=== PATIENT | female | born 1965 | race Caucasian/White ===

== ENCOUNTER 2017-07-31 10:45 | Day surgery (SDC) | payer BC ==
[~2017-07-31] VITALS: Ht 167.6 cm; Wt 148.8 kg
[~2017-07-31 10:45] MED LIST: ALBU90OI61 INH; AMLO10 PO; ASPI81CH PO; Clonazepam0.25 MG PO; LEVSOD50 PO; LOSARTAN-HCTZ1 EAC2 PO; Prozac20 MG PO; QNASL CHILDREN4.9 GM INH
== END 2017-07-31 12:43 | disposition home or self-care (01) ==
LOC: ORSCMMR 10:45
PROVIDERS: Internal Medicine Gastroenterology
PROC: 0DBK8ZX Excision of Ascending Colon, Via Natural or Artificial Opening Endoscopic, Diagnostic (ICD-10-PCS; principal; 2017-07-31 13:00)
PROC: 0DBH8ZX Excision of Cecum, Via Natural or Artificial Opening Endoscopic, Diagnostic (ICD-10-PCS; principal; 2017-07-31 13:00)
PROC: 0DBL8ZX Excision of Transverse Colon, Via Natural or Artificial Opening Endoscopic, Diagnostic (ICD-10-PCS; principal; 2017-07-31 13:00)
PROC: 0DBN8ZX Excision of Sigmoid Colon, Via Natural or Artificial Opening Endoscopic, Diagnostic (ICD-10-PCS; 2017-07-31 13:00)
PROC: 0DBM8ZX Excision of Descending Colon, Via Natural or Artificial Opening Endoscopic, Diagnostic (ICD-10-PCS; 2017-07-31 13:00)
DX: R19.7 Diarrhea, unspecified (principal); D12.0 Benign neoplasm of cecum; D12.2 Benign neoplasm of ascending colon; D12.4 Benign neoplasm of descending colon; D12.3 Benign neoplasm of transverse colon; K64.8 Other hemorrhoids; K57.30 Diverticulosis of large intestine without perforation or abscess without bleeding; Z83.71 Family history of colonic polyps; I10 Essential (primary) hypertension; J45.909 Unspecified asthma, uncomplicated; E03.9 Hypothyroidism, unspecified; E66.9 Obesity, unspecified; Z68.43 Body mass index [BMI] 50.0-59.9, adult; Z79.82 Long term (current) use of aspirin; Z79.899 Other long term (current) drug therapy
CPT/HCPCS: 88305; J2250; J7120

== ENCOUNTER → 2019-02-26 | Outpatient (CLI) | payer BC ==
[2019-02-26 13:26] LABS: Creatinine, Urine Random 9.03 mg/dL (27.00-270.00); Protein, Urine Random <5.0 mg/dL (0.0-11.9)
== END | disposition home or self-care (01) ==
LOC: LAB SHORT 12:16 → LAB 12:16
PROVIDERS: Internal Medicine
DX: E87.6 Hypokalemia (principal)
CPT/HCPCS: 82570; 84156

== ENCOUNTER → 2021-05-18 | Outpatient (CLI) | payer BC | END | disposition home or self-care (01) | LOC: LAB SHORT 17:30 | DX: N39.0 Urinary tract infection, site not specified (principal) | CPT/HCPCS: 87077; 87086; 87186 ==

== ENCOUNTER → 2021-06-13 | Outpatient (CLI) | payer BC | END | disposition home or self-care (01) | LOC: LAB SHORT 15:30 | DX: N39.0 Urinary tract infection, site not specified (principal) | CPT/HCPCS: 87077; 87086; 87186 ==

== ENCOUNTER → 2021-06-22 | Outpatient (CLI) | payer BC | END | disposition home or self-care (01) | LOC: LAB 14:00 → LAB SHORT 14:00 | DX: R39.15 Urgency of urination (principal) | CPT/HCPCS: 87086 ==

== ENCOUNTER → 2021-11-22 | Outpatient (CLI) | payer BC ==
[2021-11-22 11:36] LABS: Adenovirus F 40/41 Not Detected (NOT DETECT); Astrovirus Not Detected (NOT DETECT); Campylobacter Sp Not Detected (NOT DETECT); Cryptosporidium Not Detected (NOT DETECT); Cyclospora Cayetanensis Not Detected (NOT DETECT); E. Coli O157 Not Detected (NOT DETECT); Entamoeba Histolytica Not Detected (NOT DETECT); Enteroaggregative E. coli-EAEC Not Detected (NOT DETECT); Enteropathogenic E. coli-EPEC Not Detected (NOT DETECT); Enterotoxigenic E. coli-ETEC Not Detected (NOT DETECT); Giardia Lamblia Not Detected (NOT DETECT); Norovirus GI/GII Not Detected (NOT DETECT); Plesiomonas Shigelloides Not Detected (NOT DETECT); Rotavirus A Not Detected (NOT DETECT); Salmonella Sp Not Detected (NOT DETECT); Sapovirus Not Detected (NOT DETECT); Shiga Toxin-prod E. coli-STEC Not Detected (NOT DETECT); Shigella/Enteroin E. coli-EIEC Not Detected (NOT DETECT); Vibrio Cholerae Not Detected (NOT DETECT); Vibrio Sp Not Detected (NOT DETECT); Yersinia Enterocolitica Not Detected (NOT DETECT)
== END | disposition home or self-care (01) ==
LOC: LAB SHORT 07:00 → LAB 07:00
PROVIDERS: Nurse Practitioner Family
DX: R19.7 Diarrhea, unspecified (principal); R74.01 Elevation of levels of liver transaminase levels; R73.01 Impaired fasting glucose
CPT/HCPCS: 87507

== ENCOUNTER 2022-10-04 08:47 | Day surgery (SDC) | payer BC ==
[~2022-10-04] VITALS: Ht 170.2 cm; Wt 149.1 kg
[2022-10-04] MEDS ORDERED: GABA100 (09:20)
[2022-10-04] MEDS ORDERED: Aldactone50 MG (09:20)
[2022-10-04] MEDS ORDERED: Prozac40 MG (09:21)
[2022-10-04] MEDS ORDERED: TRAZ100 (09:21)
[2022-10-04] MEDS ORDERED: TRAM50 (09:21)
== END 2022-10-04 11:26 | disposition home or self-care (01) ==
LOC: ORSCSDS 08:47
PROVIDERS: Internal Medicine Gastroenterology
PROC: 0DBH8ZX Excision of Cecum, Via Natural or Artificial Opening Endoscopic, Diagnostic (ICD-10-PCS; principal; 2022-10-04 10:00)
PROC: 0DBL8ZX Excision of Transverse Colon, Via Natural or Artificial Opening Endoscopic, Diagnostic (ICD-10-PCS; principal; 2022-10-04 10:00)
PROC: 0DBE8ZX Excision of Large Intestine, Via Natural or Artificial Opening Endoscopic, Diagnostic (ICD-10-PCS; principal; 2022-10-04 10:00)
DX: R19.7 Diarrhea, unspecified (principal); Z86.010 Personal history of colon polyps; K64.4 Residual hemorrhoidal skin tags; I10 Essential (primary) hypertension; E03.9 Hypothyroidism, unspecified; Z87.891 Personal history of nicotine dependence; Z79.899 Other long term (current) drug therapy; E66.01 Morbid (severe) obesity due to excess calories; Z68.43 Body mass index [BMI] 50.0-59.9, adult
CPT/HCPCS: 88305; J2250; J2704; J7120

== ENCOUNTER → 2024-03-02 | Outpatient (CLI) | payer BC ==
[~2024-03-02] MED LIST changes: +Aldactone50 MG; +GABA100; +Prozac40 MG; +TRAM50; +TRAZ100
== END | disposition home or self-care (01) ==
LOC: LAB 11:58 → LAB SHORT 11:58
DX: L08.9 Local infection of the skin and subcutaneous tissue, unspecified (principal)
CPT/HCPCS: 87070; 87077; 87147; 87186; 87205

== ENCOUNTER 2024-09-19 08:01 | Emergency (ER) | payer BC ==
[~2024-09-19] VITALS: Ht 170.2 cm; Wt 145.2 kg
[2024-09-19] MEDS ORDERED: Ketorolac Tromethamine 15mg Vial IV ONE (10:00)
[2024-09-19 10:29] LABS: BASOPHILS ABSOLUTE AUTO 0.05 K/mm3 (0.00-0.23); BASOPHILS PERCENT AUTO 1 % (0-2); EOSINOPHILS ABSOLUTE AUTO 0.07 K/mm3 (0.00-0.68); EOSINOPHILS PERCENT AUTO 1 % (0-6); Hemoglobin 12.2 g/dL (11.5-16.0); IMMATURE GRAN ABSOLUTE AUTO 0.03 K/mm3 (0.00-0.10); IMMATURE GRAN PERCENT AUTO 0 % (0-1); LYMPHOCYTES ABSOLUTE AUTO 1.69 K/mm3 (0.84-5.20); LYMPHOCYTES PERCENT AUTO 17 % (21-46); MONOCYTES ABSOLUTE AUTO 0.62 K/mm3 (0.16-1.47); MONOCYTES PERCENT AUTO 6 % (4-13); Mean Corpuscular HGB 28.5 pg (26.0-34.0); Mean Corpuscular HGB Conc 32.1 g/dL (31.5-36.5); Mean Corpuscular Volume 89 fL (80-100); Mean Platelet Volume 9.4 fL (9.1-12.4); NEUTROPHILS PERCENT AUTO 76 % (41-73); Platelet Count 277 K/mm3 (150-400); RDW Coefficient Variation 15.1 % (11.7-14.2); RDW Standard Deviation 49.1 fL (35.1-46.3); Red Blood Cell Count 4.28 M/mm3 (3.80-5.20); White Blood Cell Count 10.06 K/mm3 (4.00-11.30)
[2024-09-19 11:04] LABS: Albumin/Globulin Ratio 0.7 (0.8-1.8); Bilirubin, Total 0.8 mg/dL (0.1-1.0); Bun/Creatinine Ratio 32.6 (12.0-20.0); Calcium, Blood 9.3 mg/dL (8.5-10.1); Creatinine, Blood 0.64 mg/dL (0.40-1.00); Globulin, Blood 4.3 g/dL (2.2-4.0); Potassium, Blood 3.6 mmol/L (3.5-5.5); Total Protein, Blood 7.3 g/dL (6.4-8.2)
[2024-09-19] MEDS ORDERED: Lidocaine 4% 1 Patch TOP ONE (12:40)
[2024-09-19] MEDS ORDERED: Methocarbamol 500 MG Tab PO ONE (12:40)
[2024-09-19 14:02] LABS: Source, Urine Fem Cath
[2024-09-19 14:04] LABS: Appearance, Urine Hazy (Clear); Bilirubin, Urine Neg (Neg); Blood, Urine Neg (Neg); Color, Urine Yellow (P-Yellow); Glucose Qualitative, Urine Neg (Neg); Ketones, Urine Neg (Neg); Leukocyte Esterase, Urine Neg (Neg); Nitrite, Urine Neg (Neg); Protein, Urine 1+ (Neg); Specific Gravity, Urine 1.015 (1.003-1.022); Urobilinogen, Urine 1+ (Normal)
[2024-09-19 14:13] LABS: Bacteria Mod /hpf; Red Blood Cells, Urine 0-2 /hpf (0-2); Squamous Epithelial Cells Rare /hpf (Few); White Blood Cells, Urine 0-2 /hpf (0-5)
[2024-09-19] MEDS ORDERED: ClonazePAM 1 MG Tab PO ONE (14:45)
[2024-09-19 21:30] VITALS: BP 130/66
[2024-09-19] MEDS ORDERED: Ketorolac Tromethamine 30mg Vial IV ONE (22:35)
== END 2024-09-19 23:05 | disposition home or self-care (01) ==
LOC: ER 08:01
PROVIDERS: Student in an Organized Health Care Education/Training Program
DX: M62.81 Muscle weakness (generalized) (principal); R33.9 Retention of urine, unspecified; D25.9 Leiomyoma of uterus, unspecified; G62.9 Polyneuropathy, unspecified; Z87.891 Personal history of nicotine dependence; Z79.899 Other long term (current) drug therapy
CPT/HCPCS: 51702; 51798; 72141; 72146; 72148; 74177; 80053; 81001; 85025; 87086; 93971; 96374-59; 96376-59; 99285-25; A9270; J1885; Q9967

== ENCOUNTER 2024-09-20 09:36 | Emergency (ER) | payer BC ==
[~2024-09-20] VITALS: Ht 170.2 cm; Wt 145.2 kg
[2024-09-20 10:13] VITALS: BP 117/74
== END 2024-09-20 10:19 | disposition home or self-care (01) ==
LOC: ER 09:36
DX: Z48.03 Encounter for change or removal of drains (principal); Z87.891 Personal history of nicotine dependence
CPT/HCPCS: 99283

== ENCOUNTER 2024-09-29 17:44 | Emergency (ER) | payer BC ==
[~2024-09-29] VITALS: Ht 170.2 cm; Wt 139.2 kg
[~2024-09-29 17:44] MED LIST changes: -Aldactone50 MG; +Aldactone50 MG PO; -TRAM50; +TRAM50 PO
[2024-09-29 18:43] LABS: BASOPHILS ABSOLUTE AUTO 0.04 K/mm3 (0.00-0.23); BASOPHILS PERCENT AUTO 0 % (0-2); EOSINOPHILS ABSOLUTE AUTO 0.14 K/mm3 (0.00-0.68); EOSINOPHILS PERCENT AUTO 1 % (0-6); Hematocrit 34.9 % (33.0-51.0); Hemoglobin 11.2 g/dL (11.5-16.0); IMMATURE GRAN ABSOLUTE AUTO 0.09 K/mm3 (0.00-0.10); IMMATURE GRAN PERCENT AUTO 1 % (0-1); LYMPHOCYTES ABSOLUTE AUTO 2.45 K/mm3 (0.84-5.20); LYMPHOCYTES PERCENT AUTO 23 % (21-46); MONOCYTES ABSOLUTE AUTO 0.52 K/mm3 (0.16-1.47); MONOCYTES PERCENT AUTO 5 % (4-13); Mean Corpuscular HGB 28.2 pg (26.0-34.0); Mean Corpuscular HGB Conc 32.1 g/dL (31.5-36.5); Mean Corpuscular Volume 88 fL (80-100); Mean Platelet Volume 9.3 fL (9.1-12.4); NEUTROPHILS ABSOLUTE AUTO 7.41 K/mm3 (1.96-9.15); NEUTROPHILS PERCENT AUTO 70 % (41-73); Platelet Count 254 K/mm3 (150-400); RDW Coefficient Variation 14.8 % (11.7-14.2); RDW Standard Deviation 48.5 fL (35.1-46.3); Red Blood Cell Count 3.97 M/mm3 (3.80-5.20); White Blood Cell Count 10.65 K/mm3 (4.00-11.30)
[2024-09-29 19:14] LABS: Albumin, Blood 2.7 g/dL (3.4-5.0); Albumin/Globulin Ratio 0.7 (0.8-1.8); Bilirubin, Total 0.6 mg/dL (0.1-1.0); Bun/Creatinine Ratio 16.2 (12.0-20.0); Calcium, Blood 9.4 mg/dL (8.5-10.1); Creatinine, Blood 0.55 mg/dL (0.40-1.00); Globulin, Blood 4.1 g/dL (2.2-4.0); Potassium, Blood 3.3 mmol/L (3.5-5.5); Total Protein, Blood 6.8 g/dL (6.4-8.2)
[2024-09-29] MEDS ORDERED: TAMS.4ER PO (19:15)
[2024-09-29] MEDS ORDERED: PREG25 PO (19:15)
[2024-09-29] MEDS ORDERED: FURO20 (19:15)
[2024-09-29 19:16] LABS: Source, Urine Clean Catch
[2024-09-29] MEDS ORDERED: HYDCHL25 (19:16)
[2024-09-29] MEDS ORDERED: LOSA50 PO (19:16)
[2024-09-29] MEDS ORDERED: POTCHL20ER PO (19:16)
[2024-09-29] MEDS ORDERED: VITAMIN B121000 MCG PO (19:17)
[2024-09-29] MEDS ORDERED: FOLI1 PO (19:17)
[2024-09-29] MEDS ORDERED: FLUT1DIS5 INH (19:17)
[2024-09-29] MEDS ORDERED: Nortriptyline H50 MG PO (19:17)
[2024-09-29] MEDS ORDERED: VITAMIN D350 MC3 PO (19:17)
[2024-09-29 19:21] LABS: Appearance, Urine Hazy (Clear); Blood, Urine 3+ (Neg); Color, Urine Amber (P-Yellow); Glucose Qualitative, Urine Neg (Neg); Ketones, Urine 2+ (Neg); Leukocyte Esterase, Urine 3+ (Neg); Nitrite, Urine Pos (Neg); Protein, Urine 3+ (Neg); Specific Gravity, Urine 1.015 (1.003-1.022); Urobilinogen, Urine 3+ (Normal)
[2024-09-29 19:47] LABS: Bilirubin, Urine 2+ (Neg)
[2024-09-29 19:49] LABS: Mucus Light (0-Heavy)
[2024-09-29 19:50] LABS: Bacteria Many /hpf; Squamous Epithelial Cells Many /hpf (Few); Transitional Epithelial Cells Few /hpf (0-Rare)
[2024-09-29] MEDS ORDERED: Magnesium Citrate 300 ML BTL PO ONE ×2 (20:30→23:00)
[2024-09-29] MEDS ORDERED: Water 500ML With 1 PKT Castile Soap Enema PR ONE (20:30)
[2024-09-29] MEDS ORDERED: CefTRIAXone Sodium 1,000 MG in NS 100 ML IV ONE (21:30)
[2024-09-29 23:00] VITALS: BP 111/58
[2024-09-29] MEDS ORDERED: Diflucan100 MG PO (23:03)
[2024-09-29] MEDS ORDERED: CEFD300 PO (23:03)
== END 2024-09-29 23:10 | disposition home or self-care (01) ==
LOC: ER 17:44
PROVIDERS: Student in an Organized Health Care Education/Training Program
DX: K59.00 Constipation, unspecified (principal); N39.0 Urinary tract infection, site not specified; Z79.82 Long term (current) use of aspirin; Z79.890 Hormone replacement therapy; Z79.899 Other long term (current) drug therapy; Z87.891 Personal history of nicotine dependence
CPT/HCPCS: 71046; 74177; 80053; 81001; 83690; 84484; 85025; 87077; 87086; 87186; 93005; 93010; 96374-59; 99284-25; A9270; J0696; Q9967

== ENCOUNTER 2024-10-03 13:15 | Emergency (ER) | payer BC ==
[~2024-10-03] VITALS: Ht 170.2 cm; Wt 139.2 kg
[~2024-10-03 13:15] MED LIST changes: +CEFD300 PO; +Diflucan100 MG PO; +FLUT1DIS5 INH; +FOLI1 PO; +FURO20; +HYDCHL25; +LOSA50 PO; +Nortriptyline H50 MG PO; +POTCHL20ER PO; +PREG25 PO; +TAMS.4ER PO; +VITAMIN B121000 MCG PO; +VITAMIN D350 MC3 PO
[2024-10-03 15:04] LABS: Source, Urine Clean Catch
[2024-10-03 15:14] LABS: Appearance, Urine Clear (Clear); Bilirubin, Urine Neg (Neg); Blood, Urine Neg (Neg); Color, Urine Yellow (P-Yellow); Glucose Qualitative, Urine Neg (Neg); Ketones, Urine Neg (Neg); Leukocyte Esterase, Urine 1+ (Neg); Nitrite, Urine Neg (Neg); Protein, Urine 1+ (Neg); Urobilinogen, Urine 1+ (Normal); pH, Urine 6.5 (5.0-8.0)
[2024-10-03 15:23] LABS: Amorphous Light (0-Heavy); Bacteria Few /hpf; Mucus Light (0-Heavy); Red Blood Cells, Urine Not Seen /hpf (0-2); Squamous Epithelial Cells Few /hpf (Few); White Blood Cells, Urine 0-2 /hpf (0-5)
[2024-10-03 15:45] VITALS: BP 114/61
== END 2024-10-03 16:04 | disposition home or self-care (01) ==
LOC: ER 13:15
PROVIDERS: Student in an Organized Health Care Education/Training Program
DX: R33.9 Retention of urine, unspecified (principal); Z87.891 Personal history of nicotine dependence; Z79.51 Long term (current) use of inhaled steroids; Z79.899 Other long term (current) drug therapy
CPT/HCPCS: 51702; 51798; 81001; 87086; 99283-25

== ENCOUNTER 2024-10-06 11:20 | Emergency (ER) | payer BC ==
[~2024-10-06] VITALS: Ht 170.2 cm; Wt 139.2 kg
[2024-10-06 11:49] LABS: BASOPHILS ABSOLUTE AUTO 0.04 K/mm3 (0.00-0.23); BASOPHILS PERCENT AUTO 0 % (0-2); EOSINOPHILS ABSOLUTE AUTO 0.11 K/mm3 (0.00-0.68); EOSINOPHILS PERCENT AUTO 1 % (0-6); Hematocrit 30.5 % (33.0-51.0); Hemoglobin 9.9 g/dL (11.5-16.0); IMMATURE GRAN ABSOLUTE AUTO 0.14 K/mm3 (0.00-0.10); IMMATURE GRAN PERCENT AUTO 1 % (0-1); LYMPHOCYTES ABSOLUTE AUTO 2.31 K/mm3 (0.84-5.20); LYMPHOCYTES PERCENT AUTO 22 % (21-46); MONOCYTES ABSOLUTE AUTO 0.56 K/mm3 (0.16-1.47); MONOCYTES PERCENT AUTO 5 % (4-13); Mean Corpuscular HGB 28.5 pg (26.0-34.0); Mean Corpuscular HGB Conc 32.5 g/dL (31.5-36.5); Mean Corpuscular Volume 88 fL (80-100); Mean Platelet Volume 9.4 fL (9.1-12.4); NEUTROPHILS ABSOLUTE AUTO 7.13 K/mm3 (1.96-9.15); NEUTROPHILS PERCENT AUTO 69 % (41-73); Platelet Count 284 K/mm3 (150-400); RDW Coefficient Variation 15.2 % (11.7-14.2); RDW Standard Deviation 48.9 fL (35.1-46.3); Red Blood Cell Count 3.47 M/mm3 (3.80-5.20); White Blood Cell Count 10.29 K/mm3 (4.00-11.30)
[2024-10-06 12:08] LABS: Albumin, Blood 2.5 g/dL (3.4-5.0); Albumin/Globulin Ratio 0.7 (0.8-1.8); Bilirubin, Total 0.3 mg/dL (0.1-1.0); Bun/Creatinine Ratio 18.3 (12.0-20.0); Calcium, Blood 9.3 mg/dL (8.5-10.1); Creatinine, Blood 1.04 mg/dL (0.40-1.00); Globulin, Blood 3.6 g/dL (2.2-4.0); Total Protein, Blood 6.1 g/dL (6.4-8.2)
[2024-10-06] MEDS ORDERED: Lactated Ringer's 1,000 ML IV SCH (12:30)
[2024-10-06 13:44] LABS: IMMATURE RETIC FRACTION 27.1 % (2.3-16.0); RETIC HGB EQUIVALENT 27.3 pg (28.20-36.60); RETICULOCYTE ABSOLUTE 0.0422 M/mm3 (0.0200-0.1100); RETICULOCYTE COUNT PERCENT 1.17 % (0.50-2.50)
[2024-10-06 15:51] LABS: Percent Saturation 47.6 % (15.0-50.0)
[2024-10-06 17:00] VITALS: BP 140/62
== END 2024-10-06 18:04 | disposition home or self-care (01) ==
LOC: ER 11:20
PROVIDERS: Emergency Medicine; Student in an Organized Health Care Education/Training Program
DX: R55 Syncope and collapse (principal); D53.9 Nutritional anemia, unspecified; R06.00 Dyspnea, unspecified; F17.210 Nicotine dependence, cigarettes, uncomplicated; I10 Essential (primary) hypertension; E03.9 Hypothyroidism, unspecified; Z79.890 Hormone replacement therapy; Z79.899 Other long term (current) drug therapy
CPT/HCPCS: 71045; 71260; 80053; 82728; 83540; 83550; 83880; 84484; 85025; 85045; 85379; 93005; 93010; 99285-25; J7120; Q9967

== ENCOUNTER 2024-10-22 15:17 | Emergency (ER) | payer BC ==
[~2024-10-22] VITALS: Ht 170.2 cm; Wt 139.2 kg
[~2024-10-22 15:17] MED LIST changes: +ALBU90OI INH; -ALBU90OI61 INH; -HYDCHL25; +HYDCHL25 PO; -Prozac40 MG
[2024-10-22 16:17] LABS: BASOPHILS ABSOLUTE AUTO 0.05 K/mm3 (0.00-0.23); BASOPHILS PERCENT AUTO 1 % (0-2); EOSINOPHILS ABSOLUTE AUTO 0.42 K/mm3 (0.00-0.68); EOSINOPHILS PERCENT AUTO 4 % (0-6); Hemoglobin 10.6 g/dL (11.5-16.0); IMMATURE GRAN ABSOLUTE AUTO 0.12 K/mm3 (0.00-0.10); IMMATURE GRAN PERCENT AUTO 1 % (0-1); LYMPHOCYTES ABSOLUTE AUTO 1.47 K/mm3 (0.84-5.20); LYMPHOCYTES PERCENT AUTO 14 % (21-46); MONOCYTES ABSOLUTE AUTO 0.77 K/mm3 (0.16-1.47); MONOCYTES PERCENT AUTO 7 % (4-13); Mean Corpuscular HGB 27.9 pg (26.0-34.0); Mean Corpuscular HGB Conc 32.1 g/dL (31.5-36.5); Mean Corpuscular Volume 87 fL (80-100); Mean Platelet Volume 10.3 fL (9.1-12.4); NEUTROPHILS PERCENT AUTO 74 % (41-73); Platelet Count 257 K/mm3 (150-400); RDW Standard Deviation 51.7 fL (35.1-46.3); White Blood Cell Count 10.73 K/mm3 (4.00-11.30)
[2024-10-22 16:25] LABS: Albumin, Blood 2.6 g/dL (3.4-5.0); Albumin/Globulin Ratio 0.6 (0.8-1.8); Bilirubin, Total 0.5 mg/dL (0.1-1.0); Bun/Creatinine Ratio 29.7 (12.0-20.0); Calcium, Blood 10.2 mg/dL (8.5-10.1); Creatinine, Blood 1.28 mg/dL (0.40-1.00); Globulin, Blood 4.5 g/dL (2.2-4.0); Potassium, Blood 4.2 mmol/L (3.5-5.5); Total Protein, Blood 7.1 g/dL (6.4-8.2)
[2024-10-22] MEDS ORDERED: NS 1,000 ML IV SCH (16:30)
[2024-10-22] MEDS ORDERED: Albuterol 2.5 MG/3 ML VIAL INH ONE (16:40)
[2024-10-22 18:22] LABS: Source, Urine Clean Catch
[2024-10-22 18:32] LABS: Appearance, Urine Cloudy (Clear); Bilirubin, Urine Neg (Neg); Blood, Urine 2+ (Neg); Color, Urine Yellow (P-Yellow); Glucose Qualitative, Urine Neg (Neg); Ketones, Urine Neg (Neg); Leukocyte Esterase, Urine 3+ (Neg); Nitrite, Urine Neg (Neg); Protein, Urine 1+ (Neg); Urobilinogen, Urine NORM (Normal)
[2024-10-22 18:39] LABS: Bacteria Mod /hpf; Squamous Epithelial Cells Mod /hpf (Few); White Blood Cells, Urine TNTC /hpf (0-5)
[2024-10-22] MEDS ORDERED: Trimethoprim/Sulfamethoxazole DS Tab PO ONE (19:05)
[2024-10-22] MEDS ORDERED: Fluconazole 100 MG Tab PO ONE (19:05)
[2024-10-22] MEDS ORDERED: Ketorolac Tromethamine 15mg Vial IV ONE (19:05)
[2024-10-22] MEDS ORDERED: Diflucan150 MG PO (19:50)
[2024-10-22] MEDS ORDERED: CEPH500 PO (19:50)
[2024-10-22 20:00] VITALS: BP 116/58
[2024-10-23] MEDS ORDERED: AMLO5 PO (09:23)
[2024-10-23] MEDS ORDERED: Aspir 8181 MG PO (09:23)
[2024-10-23] MEDS ORDERED: BUSP5 PO (09:24)
[2024-10-23] MEDS ORDERED: GABA300 PO (09:26)
[2024-10-23] MEDS ORDERED: HYDHCL25 PO (09:27)
== END 2024-10-22 20:28 | disposition home or self-care (01) ==
LOC: ER 15:17
PROVIDERS: Student in an Organized Health Care Education/Training Program
DX: S82.831A Other fracture of upper and lower end of right fibula, initial encounter for closed fracture (principal); N39.0 Urinary tract infection, site not specified; N17.9 Acute kidney failure, unspecified; B37.31 Acute candidiasis of vulva and vagina; I10 Essential (primary) hypertension; J45.909 Unspecified asthma, uncomplicated; F17.210 Nicotine dependence, cigarettes, uncomplicated; Z79.890 Hormone replacement therapy; Z79.899 Other long term (current) drug therapy; W18.39XA Other fall on same level, initial encounter
CPT/HCPCS: 51702; 51798; 72100; 73562-RT; 73610; 80053; 81001; 85025; 87077; 87086; 87186; 93005; 93010; 94640; 94664; 96361-59; 96374-59; 99284-25; A6590; A9270; J1885; J7030

== ENCOUNTER 2024-10-28 21:20 | Inpatient (IN) | payer BC ==
[~2024-10-28] VITALS: Ht 167.6 cm; Wt 131.0 kg
[~2024-10-28 21:20] MED LIST changes: +AMLO5 PO; +Aspir 8181 MG PO; +BUSP5 PO; +CEPH500 PO; +Diflucan150 MG PO; +GABA300 PO; +HYDHCL25 PO
[2024-10-28] MEDS ORDERED: Morphine Sulfate 4 MG/1 ML Injection IV ONE (21:35)
[2024-10-28] MEDS ORDERED: Ondansetron HCl 2 MG / ML 2ML Vial IV ONE (21:40)
[2024-10-28 21:43] LABS: BASOPHILS ABSOLUTE AUTO 0.07 K/mm3 (0.00-0.23); BASOPHILS PERCENT AUTO 1 % (0-2); EOSINOPHILS ABSOLUTE AUTO 0.22 K/mm3 (0.00-0.68); EOSINOPHILS PERCENT AUTO 2 % (0-6); Hematocrit 32.2 % (33.0-51.0); Hemoglobin 9.9 g/dL (11.5-16.0); IMMATURE GRAN ABSOLUTE AUTO 0.18 K/mm3 (0.00-0.10); IMMATURE GRAN PERCENT AUTO 1 % (0-1); LYMPHOCYTES ABSOLUTE AUTO 1.77 K/mm3 (0.84-5.20); LYMPHOCYTES PERCENT AUTO 12 % (21-46); MONOCYTES ABSOLUTE AUTO 0.46 K/mm3 (0.16-1.47); MONOCYTES PERCENT AUTO 3 % (4-13); Mean Corpuscular HGB Conc 30.7 g/dL (31.5-36.5); Mean Corpuscular Volume 88 fL (80-100); Mean Platelet Volume 10.4 fL (9.1-12.4); NEUTROPHILS ABSOLUTE AUTO 11.76 K/mm3 (1.96-9.15); NEUTROPHILS PERCENT AUTO 81 % (41-73); Platelet Count 332 K/mm3 (150-400); RDW Coefficient Variation 15.9 % (11.7-14.2); RDW Standard Deviation 51.6 fL (35.1-46.3); Red Blood Cell Count 3.66 M/mm3 (3.80-5.20); White Blood Cell Count 14.46 K/mm3 (4.00-11.30)
[2024-10-28 21:55] LABS: Albumin, Blood 2.8 g/dL (3.4-5.0); Albumin/Globulin Ratio 0.6 (0.8-1.8); Bilirubin, Total 0.4 mg/dL (0.1-1.0); Bun/Creatinine Ratio 29.7 (12.0-20.0); Calcium, Blood 9.8 mg/dL (8.5-10.1); Creatinine, Blood 0.91 mg/dL (0.40-1.00); Globulin, Blood 4.4 g/dL (2.2-4.0); Magnesium, Blood 1.7 mg/dL (1.6-2.4); Potassium, Blood 4.4 mmol/L (3.5-5.5); Total Protein, Blood 7.2 g/dL (6.4-8.2)
[2024-10-28 22:04] LABS: Source, Urine Clean Catch
[2024-10-28 22:10] LABS: Bilirubin, Urine Neg (Neg); Blood, Urine 1+ (Neg); Glucose Qualitative, Urine Neg (Neg); Ketones, Urine 1+ (Neg); Leukocyte Esterase, Urine 2+ (Neg); Nitrite, Urine Neg (Neg); Protein, Urine 2+ (Neg); Urobilinogen, Urine NORM (Normal)
[2024-10-28 22:16] LABS: Appearance, Urine Hazy (Clear); Color, Urine Yellow (P-Yellow)
[2024-10-28 22:17] LABS: Bacteria Mod /hpf; Squamous Epithelial Cells Few /hpf (Few); White Blood Cells, Urine 25-50 /hpf (0-5)
[2024-10-28 22:18] LABS: Amorphous Light (0-Heavy); Uric Acid Crystals Few /hpf
[2024-10-28] MEDS ORDERED: Robaxin750 MG PO (22:52)
[2024-10-28] MEDS ORDERED: NS 1,000 ML IV SCH (23:40)
[2024-10-29] MEDS ORDERED: CefTRIAXone Sodium 1,000 MG in NS 100 ML IV ONE (00:50)
[2024-10-29] MEDS ORDERED: Acetaminophen 325 MG TABLET PO PRN (01:25)
[2024-10-29] MEDS ORDERED: Ondansetron HCl 2 MG / ML 2ML Vial IV PRN (01:25)
[2024-10-29 01:50] LABS: Free Thyroxine 1.01 ng/dL (0.70-1.60); Thyroid Stimulating Hormone 48.9 uIU/mL (0.360-4.800)
[2024-10-29] MEDS ORDERED: NS 1,000 ML IV SCH (02:00)
[2024-10-29 02:15] LABS: Influenza A, PCR NEGATIVE (NEGATIVE); Influenza B, PCR NEGATIVE (NEGATIVE); Resp Syncytial Virus, PCR NEGATIVE (NEGATIVE); SARS-Cov-2 (COVID-19) PCR, MMC NEGATIVE (NEGATIVE)
[2024-10-29 03:30] VITALS: BP 127/61
[2024-10-29 04:13] LABS: BASOPHILS ABSOLUTE AUTO 0.07 K/mm3 (0.00-0.23); BASOPHILS PERCENT AUTO 1 % (0-2); EOSINOPHILS ABSOLUTE AUTO 0.13 K/mm3 (0.00-0.68); EOSINOPHILS PERCENT AUTO 1 % (0-6); Hematocrit 33.2 % (33.0-51.0); IMMATURE GRAN ABSOLUTE AUTO 0.17 K/mm3 (0.00-0.10); IMMATURE GRAN PERCENT AUTO 1 % (0-1); LYMPHOCYTES ABSOLUTE AUTO 1.76 K/mm3 (0.84-5.20); LYMPHOCYTES PERCENT AUTO 11 % (21-46); MONOCYTES ABSOLUTE AUTO 0.58 K/mm3 (0.16-1.47); MONOCYTES PERCENT AUTO 4 % (4-13); Mean Corpuscular HGB Conc 30.1 g/dL (31.5-36.5); Mean Corpuscular Volume 90 fL (80-100); Mean Platelet Volume 10.6 fL (9.1-12.4); NEUTROPHILS ABSOLUTE AUTO 12.78 K/mm3 (1.96-9.15); NEUTROPHILS PERCENT AUTO 83 % (41-73); Platelet Count 309 K/mm3 (150-400); RDW Coefficient Variation 15.9 % (11.7-14.2); RDW Standard Deviation 51.9 fL (35.1-46.3); Red Blood Cell Count 3.71 M/mm3 (3.80-5.20); White Blood Cell Count 15.49 K/mm3 (4.00-11.30)
[2024-10-29 04:44] LABS: Albumin, Blood 2.8 g/dL (3.4-5.0); Albumin/Globulin Ratio 0.7 (0.8-1.8); Bilirubin, Total 0.3 mg/dL (0.1-1.0); Bun/Creatinine Ratio 32.8 (12.0-20.0); Calcium, Blood 9.7 mg/dL (8.5-10.1); Creatinine, Blood 0.82 mg/dL (0.40-1.00); Globulin, Blood 4.3 g/dL (2.2-4.0); Magnesium, Blood 1.8 mg/dL (1.6-2.4); Potassium, Blood 4.5 mmol/L (3.5-5.5); Total Protein, Blood 7.1 g/dL (6.4-8.2)
--- NOTE | 2024-10-29 05:30 | NUR ---
SHIFT SUMMARY PT ARRIVED FROM ER AT 0300. PT GIVEN BED BATH D/T STOOL. NEW ATTENDS AND GOWN PLACED. PICTURES TAKEN OF SKIN WOUNDS. RIGHT LEG FX ELEVATED ON PILLOWS AND PT FLOATED. NS INFUSING AT 125ML/HR. ARIAS REMOVED TO BE REPLACED BUT PLACEMENT WAS UNSUCCESFUL. PT ON WEANED TO 3L OF OXYGEN AND SATING AT 100%. TELE SHOWING SR IN THE 60's. VSS. BED IN LOWEST POSITION AND CALL LIGHT IN REACH.
[2024-10-29] MEDS ORDERED: Levothyroxine Sodium 0.175 MG TAB PO SCH (06:00)
[2024-10-29] MEDS ORDERED: Lidocaine 4% 1 Patch TOP PRN (06:10)
[2024-10-29 07:25] VITALS: BP 124/76
[2024-10-29] MEDS ORDERED: Lactobacil 2-S.Thermo-Bifido 1 1 Cap PO SCH (09:00)
[2024-10-29] MEDS ORDERED: Enoxaparin 40 MG/0.4 ML SYR SC SCH (09:00)
[2024-10-29] MEDS ORDERED: ZINC OXIDE/PETROLATUM, YELLOW 1 APPLIC/71 GM PASTE TOP PRN (09:10)
[2024-10-29] MEDS ORDERED: OxyCODONE 5 mg/Acetamin 325 mg TABLET PO PRN (09:15)
[2024-10-29] MEDS ORDERED: Docusate Sodium 100 MG Cap PO SCH (10:00)
[2024-10-29 11:10] VITALS: BP 120/54
[2024-10-29] MEDS ORDERED: Methocarbamol 500 MG Tab PO PRN (11:20)
[2024-10-29] MEDS ORDERED: BusPIRone HCl 5 MG Tab PO PRN (11:20)
[2024-10-29] MEDS ORDERED: Albuterol HFA200 ACT/6.7 GM INH INH PRN (11:35)
[2024-10-29 11:40] VITALS: BP 120/72
[2024-10-29] MEDS ORDERED: FLUoxetine HCL 20 MG CAP PO SCH (12:00)
[2024-10-29] MEDS ORDERED: Polyethylene Glycol 3350 17 gm PO SCH (12:00)
[2024-10-29] MEDS ORDERED: Nicotine 21 MG PATCH TOP SCH (12:00)
--- NOTE | 2024-10-29 13:07 | NUR ---
PT FOUND BLUE/CYANOTIC, STILL BREATING SLOWLY, AROUSABLE, ASKED HOW SHE FEELS, STATES SHE FEELS TIRES AND HAVING TROUBLE BREATHING. OXYGEN HAD BEEN OFF FOR AN HOUR. SATS WERE MAINTAINING 94-96% ROOM AIR. REAPPLIED OXYGEN FULL 15LPM, PT'S SATS RECOVERED WITHIN A MINUTE ALONG WITH CONSECIOUSNESS, VSS. NOTIFIED DR ALBERTO. PT CONTINUES TO PULL HER OXYMITER PROBE OFF STATES IT IS BURNING HER FINGER. INSTRUCTED ON THE PURPOSE AND THE IMPORTANCE OF KEEPING IT ON. WILL JOHN CLOSELY FOR REMAINDER OF THE SHIFT
[2024-10-29 15:30] VITALS: BP 121/64
--- NOTE | 2024-10-29 15:35 | NUR ---
DR JARVIS AT BEDSIDE 1345 FOR CONSULT, DISCUSSED LIGAMENT TEAR DISTAL TIB/FIB AND FX OF PROX FIB, AND THAT THIS IS NOT A FIX HE WILL ATTEMPT BUT WILL DISCUSS CASE WITH PCP TO GAIN CLARITY ON THE FIRST FX DATE AND WHAT ORIGIONAL INJURY WAS. LOOKING INTO SURGICAL OPTIONS.
--- NOTE | 2024-10-29 16:33 | NUR ---
SUMMARY- PT A/O X3-4, USES CALL LIGHT APPROPRIATELY. BEDREST CURRENTLY RELATED TO RLE FX AND LIGAMTENT TEAR. DR JARVIS CONSULTED, EVALUATED PT AND LOOKING INTO OPTIONS. PT IS TO REMAIN NWB RLE. R ANKLE IS SWOLLEN, BRUISING, PPP, ABLE TO WIGGLE TOES, THROUGH FREIGHT ENGINEER <3SEC, HX NERUOPATHY, UNABLE TO FEEL FULL SENSATION BLE. PT HAS DECREASED APPETITE, BITES OF EACH MEAL. NOT MOTIVATED TO TAKE IN FLUIDS EITHER, ENC FLUID INTAKE. COMPLETED 1 LITER OF NS THIS SHIFT. BP HAS REMAINED STABLE SBP 120'S. NO VOID YET THIS SHIFT, BLADDER SCAN AT 1400 = 200ML, WILL JOHN. PT WAS IN SEVERE PAIN IN RLE, ORDER OBTAINED FOR PERCOCET WHICH HAS BEEN EFFECTIVE IN RELEIVING PAIN. PLACED HEEL PROTECTORS BILAT HEELS FOR PRE-EXHISTING BLISTERS. PERFORMED CHADWICK WASH OUT WITH STERILE WATER, IRRIGATED VAGINA THAT WAS FULL OF STOOL. CHADWICK IS EXCORIATED, APPLIED ZINC CREAM. MEPILEX TO R THIGH FOR OPEN BLISTER. BOTTOM ALSO HAS REDDENED LINEAR BREAKDOWN, IF PT WAS SITTING IN ONE POSITION FOR TOO LONG. (PRESENT PRIOR TO ADMISSION/SEE PHOTOS) PT STATES AT HOME SHE SAT ON HER WALKER/CHAIR AND PUSHED HERSELF AROUND THE HOUSE THAT WAY. PT TURNED Q2-4 HOURS, PT DECLINED BEING TURNED A FEW RELATED TO PAIN. WILL REPORT TO QUE FORRESTER
[2024-10-29 20:49] VITALS: BP 113/55
[2024-10-29] MEDS ORDERED: CefTRIAXone Sodium 1,000 MG in NS 100 ML IV SCH (21:00)
[2024-10-29] MEDS ORDERED: Sennosides 8.6 MG Tab PO SCH ×2 (21:00)
--- NOTE | 2024-10-29 23:43 | NUR ---
2130: PT AOX4 TO ORIENTATION QUESTIONS AND COMMUNICATES APPROPRIATELY FOR NEEDS AND ANSWERING QUESTIONS. PT DOES HAVE ODD COMMENTS THOUGH, EXAMPLE; PT ASKED IF SHE'LL BE SLEEPING HERE TONIGHT (REFERENCING HER ROOM), IT WAS ANSWERED THAT SHE WILL BE STAYING THE NIGHT IN THE HOSPITAL AND IN THAT ROOM. SHE ASKS "WHERE IS THE BED?" INFORMED PT SHE WAS ALREADY LYING IN THE BED AND SHE RESPONDED "WELL, I HAVENT SEEN MY FEET ALL DAY, SO I DIDNT KNOW THIS WAS A BED." PT PREVIOUSLY ALSO REMARKED "OH ITS NIGHT TIME ALREADY?" THE SUN WAS STILL OUT AND DAYLIGHT BRIGHT OUTSIDE.
[2024-10-30 04:21] VITALS: BP 123/57
[2024-10-30 05:00] LABS: BASOPHILS ABSOLUTE AUTO 0.09 K/mm3 (0.00-0.23); BASOPHILS PERCENT AUTO 1 % (0-2); EOSINOPHILS ABSOLUTE AUTO 0.33 K/mm3 (0.00-0.68); EOSINOPHILS PERCENT AUTO 3 % (0-6); Hematocrit 29.9 % (33.0-51.0); Hemoglobin 9.2 g/dL (11.5-16.0); IMMATURE GRAN ABSOLUTE AUTO 0.08 K/mm3 (0.00-0.10); IMMATURE GRAN PERCENT AUTO 1 % (0-1); LYMPHOCYTES PERCENT AUTO 28 % (21-46); MONOCYTES ABSOLUTE AUTO 0.47 K/mm3 (0.16-1.47); MONOCYTES PERCENT AUTO 5 % (4-13); Mean Corpuscular HGB 27.4 pg (26.0-34.0); Mean Corpuscular HGB Conc 30.8 g/dL (31.5-36.5); Mean Corpuscular Volume 89 fL (80-100); Mean Platelet Volume 10.6 fL (9.1-12.4); NEUTROPHILS ABSOLUTE AUTO 6.05 K/mm3 (1.96-9.15); NEUTROPHILS PERCENT AUTO 62 % (41-73); Platelet Count 295 K/mm3 (150-400); RDW Coefficient Variation 16.2 % (11.7-14.2); RDW Standard Deviation 52.8 fL (35.1-46.3); Red Blood Cell Count 3.36 M/mm3 (3.80-5.20); White Blood Cell Count 9.72 K/mm3 (4.00-11.30)
[2024-10-30 05:48] LABS: Bun/Creatinine Ratio 31.2 (12.0-20.0); Calcium, Blood 9.5 mg/dL (8.5-10.1); Creatinine, Blood 0.7 mg/dL (0.40-1.00); Free Thyroxine 0.98 ng/dL (0.70-1.60); Potassium, Blood 4.2 mmol/L (3.5-5.5); Triiodothyronine, Free 1.07 pg/mL (2.18-3.98)
--- NOTE | 2024-10-30 06:51 | NUR ---
PT STABLE THROUGHOUT SHIFT WITH VITAL SIGNS. SLEEP STUDY WAS UNABLE TO BE COMPLETED D/T PT REMOVING FINGER PROBE, OXYGEN THERAPY, AND WAS UNABLE TO MAINTAIN SLEEP. RT RECOMMENDED ATTEMPTING STUDY AGAIN THIS COMING NOC SHIFT OR DURING THE DAY IF PT IS SLEEPING. PT ALSO HAD VISUAL HALLUCINATIONS AND REMOVED OTHER MONITORING EQUIPMENT AND IV LINE DURING SHIFT. PT WAS MEDICATED FOR PAIN X1 WITH GOOD EFFECT. DISTAL CMS REMAINS INTACT TO RT LEG. RT LOWER LEG WAS ELEVATED ON PILLOWS TO HELP WITH SWELLING AND PAIN. PT OTHERWISE WAS CALM AND COOPERATIVE, ALLOWING RESTART OF IV AND REPLACEMENT OF O2 AND MONITOR PATCHES/LEADS. PT IS ABLE TO ANSWER ALL ORIENTATION QUESTIONS APPROPRIATELY AND ABLE TO USE CALL LIGHT AND MAKE NEEDS KNOWN. ARIAS CONTINUES TO DRAIN WELL AND PT HAD GOOD URINARY OUTPUT THIS SHIFT.
[2024-10-30 07:34] VITALS: BP 126/62
--- NOTE | 2024-10-30 07:49 | NUR ---
AM NOTE PT ALERT, ORIENTED X4; COOPERATIVE WITH CARE. PT REPORTING PAIN TO RIGHT ANKLE, MEDICATED PER EMAR. PT DENIES CHEST PAIN/PRESSURE, SOB, NAUSEA, AND DIZZINESS. TELE SINUS, BP STABLE. EDEMA NOTED TO BLE, RLE>LLE; BRUISING NOTED TO RLE. SPO2 >90% ON 1L O2 VIA NC, LS CLEAR, DIM BASES. ABD SOFT, NONTENDER, +BT T/O. R ANKLE ELEVATED ON PILLOW, WARM WITH CAP REFILE WNL. OTHER VSS. CALL LIGHT WITHIN REACH
[2024-10-30] MEDS ORDERED: Aspirin 81 MG TabEC PO SCH (09:00)
[2024-10-30 12:16] VITALS: BP 118/66
[2024-10-30 15:25] VITALS: BP 128/69
--- NOTE | 2024-10-30 17:42 | NUR ---
Shift Summary Pt forgetful at times and having intermittent confusion. Pt reports seeing a chicken and cat on her foot, MD notified, plans to cut back on narcotics. Pt reporting pain to rle, edema, bruising noted, cap refill wnl, patient non weight bearing per orders. Pt states she has a new prescription for CPAP at home, spouse denies and office denies as well, made aware. Dr Gao notified of consult this am, new orders for pelvic US completed, pt unable to tolerate the pain from US, Dr Gao notified, new orders for CT. Other vss. Call light with in reach.
[2024-10-30 20:32] VITALS: BP 131/62
[2024-10-30] MEDS ORDERED: Liothyronine Sodium 5 MCG Tab PO SCH (21:00)
[2024-10-30 23:17] VITALS: BP 125/66
[2024-10-31 05:41] VITALS: BP 169/65
[2024-10-31] MEDS ORDERED: Levothyroxine Sodium 0.137 MG Tab PO SCH (06:00)
--- NOTE | 2024-10-31 06:02 | NUR ---
SHIFT SUMMARY A&O X4, ABLE TO MAKE NEEDS KNOWN, OBEYS COMMANDS, BED REST AT THIS TIME, PT REFUSING REPOSITIONING, USING CALL LIGHT APPROPRIATELY. SPO2 GREATER 90% ON RA/ PT PLACED ON 2.5 L O2 VIA NC DURING SLEEP STUDY , PT DENIES SOB T/O THIS SHIFT, LUNGS SOUND CLEAR T/O, ATTEMPTED SLEEP STUDY THIS SHIFT BUT PT DID NOT SLEEP TILL APPROX 4AM. CONTINUOUS TELE MONITORING, SINUS RHYTHM 80-90 S, PULSES PRESENT T/O, MAP GREATER THAN 65, PT DENIES CHEST P/P T/O THIS SHIFT. BOWEL TONES PRESENT IN ALL 4Q, PT DENIES FEELINGS OF CONSTIPATION OR NAUSEA/ PT DOES REPORT NOT HAVING A BM IN A COUPLE OF DAYS AND STATES THAT IS SOMENTIMES NORMAL FOR HER AND JUST DEPENDS ON HOW MUCH SHE IS EATING, PT HAD TWO LIQUID BMS THIS SHIFT/PT DID NOT CALL THE FIRST TIME SHE HAD A BM BUT DID MAKE STAFF AWARE THAT SHE WAS ACTIVELY GOING THE SECOND TIME. ARIAS CATH SECURE/PATENT/DRAINING TO GRAVITY, URINE YELLOW IN COLOR . PT HAVING MULTIPLE SCABS SCATTERED T/O ARMS, BOTTOM IS EXORIATED AND PAINFUL, BRUSING SCATTED T/O, LARGE BRUISE OVER RIGHT ANKLE. PT REPORTING PAIN WITH MOVEMENT AND WITH DURING CLEANING AFTER BOWEL MOVEMENTS/ MEDICATED PER EMAR. BED LOWEST POSITION, CALL LIGHT IN REACH, AWAITING TO GIVE REPORT TO ONCOMING RN.
[2024-10-31 06:33] LABS: Calcium, Blood 9.6 mg/dL (8.5-10.1); Creatinine, Blood 0.65 mg/dL (0.40-1.00); Potassium, Blood 3.9 mmol/L (3.5-5.5)
[2024-10-31 08:30] VITALS: BP 133/65
[2024-10-31] MEDS ORDERED: Thiamine HCl 100 MG Tab PO SCH (09:00)
[2024-10-31] MEDS ORDERED: Multivitamins 1 Tab PO SCH (09:00)
--- NOTE | 2024-10-31 09:47 | NUR ---
AM NOTE: PT LYING IN BED, HAVING LOOSE STOOLS OVERNIGHT AND THIS MORNING. CLEANED PT THIS MORNING AND PLACED NEW CASE BENEATH, HOSPICE VOLUNTEER COORDINATOR EMPTIED AND PROVIDED ARIAS CARE. PT GIVEN MEDICATIONS FOR PAIN PER EMAR. PT STATES "I KEEP THINKING I SEE DOGS" AND APPEARING TO HAVE HALLUCINATIONS. PT IS ON ROOM AIR, LUNG SOUNDS CLEAR. RIGHT LOWER LEG IS SWOLLEN, BRUISED, AND THE PATIENT STATES ITS "PAINFUL" DUE TO FX. VSS, PT LYING IN BED WITH CALL LIGHT IN REACH.
[2024-10-31 11:40] VITALS: BP 122/60
[2024-10-31] MEDS ORDERED: FentaNYL Citrate 50 MCG/ML 2 ML Injection IV ONE (14:30)
[2024-10-31 15:57] VITALS: BP 138/81
--- NOTE | 2024-10-31 16:18 | NUR ---
TRANSFER NOTE: DR VIDAL AT BEDSIDE THIS AFTERNOON, REALIGNED PTS FX, AND WRAPPED IT. PT CURRENTLY GETTING A PELVIC CT WITH CONTRAST. NO OTHER ACUTE CHANGES NOTED. REPORT GIVEN TO USAMA ARELLANO ASSUMING CARE OF PT.
--- NOTE | 2024-10-31 17:00 | NUR ---
ASSUMED CARE NOTE RECEIVED REPORT FROM [employer] FI[employer] OPERATION ZOE AND ENGINEERING AND OPERATIONS DIRECTOR ALIZE. ASSUMED CARE OF PT AT 1635. PT A&OX3, TRANSFERRED TO BED W/ SLIDE SHEET, ATTENDS CHANGED, AND DENIED PAIN. PT ORIENTED TO ROOM AND CALL LIGHT. CALL LIGHT PLACED WITHIN REACH. S/O AT BEDSIDE.
--- NOTE | 2024-10-31 17:08 | NUR ---
I have reviewed the nursing students documention and am in agreement.
[2024-10-31 17:49] VITALS: BP 121/73
--- NOTE | 2024-10-31 18:05 | NUR ---
SHIFT SUMMARY PT A&OX3 W/ VISUAL HALLUCINATIONS, VSS, NOT AMBULATORY, IS TOLERATING PO, VOIDING, AND PAIN MANAGED PER EMAR. NO ACUTE CHANGES FROM PREVIOUS NOTE. CALL LIGHT WITHIN REACH AND PT ABLE TO MAKE NEEDS KNOWN.
[2024-10-31 19:14] VITALS: BP 127/79
[2024-10-31] MEDS ORDERED: NS 250 ML IV PRN (20:10)
[2024-11-01 03:22] VITALS: BP 120/70
--- NOTE | 2024-11-01 04:06 | NUR ---
SHIFT SUMMARY INITIALLY HERE FOR RESPIRATORY FAILURE & GLF ON 10/29/24 WITH R FIBULA FRACTURE. TRANSFER FROM PCU TO MED FLOOR, DECREASED FROM 4L NC TO RA. BP 127/69, HR 84. R FIBULA SPLINTED BY DR. VIDAL, ORTHO. ORTHO PLANS TO TAKE TO OR 11/02/24. ON STRICT BEDREST. MEPILEX ON L HEEL BLISTER AND R HIP ABRASION. IV IN RAC. HEART HEALTHY DIET. IV CEFTRIAXONE FOR E. FAECALIS UTI. INCONTINENT OF LIQUID BROWN STOOL. VISUAL HALLUCINATIONS. SLEEP STUDY ENDED EARLY, RT NOTIFIES STUDY SUGGESTIVE OF NEED FOR CPAP. DUE TO PT PULLING AT IV AND SLEEP STUDY EQUIPMENT, PT IS PLACED ON 2L NC INSTEAD. TOLERATING WELL.
[2024-11-01] MEDS ORDERED: Levothyroxine Sodium 0.175 MG TAB PO SCH (06:00)
[2024-11-01 06:13] LABS: BASOPHILS ABSOLUTE AUTO 0.05 K/mm3 (0.00-0.23); BASOPHILS PERCENT AUTO 1 % (0-2); EOSINOPHILS ABSOLUTE AUTO 0.39 K/mm3 (0.00-0.68); EOSINOPHILS PERCENT AUTO 4 % (0-6); Hematocrit 31.2 % (33.0-51.0); Hemoglobin 9.9 g/dL (11.5-16.0); IMMATURE GRAN ABSOLUTE AUTO 0.06 K/mm3 (0.00-0.10); IMMATURE GRAN PERCENT AUTO 1 % (0-1); LYMPHOCYTES ABSOLUTE AUTO 1.49 K/mm3 (0.84-5.20); LYMPHOCYTES PERCENT AUTO 14 % (21-46); MONOCYTES ABSOLUTE AUTO 0.63 K/mm3 (0.16-1.47); MONOCYTES PERCENT AUTO 6 % (4-13); Mean Corpuscular HGB 27.4 pg (26.0-34.0); Mean Corpuscular HGB Conc 31.7 g/dL (31.5-36.5); Mean Corpuscular Volume 86 fL (80-100); Mean Platelet Volume 10.4 fL (9.1-12.4); NEUTROPHILS ABSOLUTE AUTO 8.08 K/mm3 (1.96-9.15); NEUTROPHILS PERCENT AUTO 76 % (41-73); Platelet Count 302 K/mm3 (150-400); RDW Coefficient Variation 16.3 % (11.7-14.2); RDW Standard Deviation 50.2 fL (35.1-46.3); Red Blood Cell Count 3.61 M/mm3 (3.80-5.20)
[2024-11-01 06:43] LABS: Albumin, Blood 2.8 g/dL (3.4-5.0); Albumin/Globulin Ratio 0.7 (0.8-1.8); Bilirubin, Total 0.4 mg/dL (0.1-1.0); Bun/Creatinine Ratio 17.4 (12.0-20.0); Calcium, Blood 9.6 mg/dL (8.5-10.1); Creatinine, Blood 0.69 mg/dL (0.40-1.00); Globulin, Blood 4.1 g/dL (2.2-4.0); Potassium, Blood 3.7 mmol/L (3.5-5.5); Total Protein, Blood 6.9 g/dL (6.4-8.2)
[2024-11-01 07:12] VITALS: BP 142/76
[2024-11-01 15:30] LABS: U Amphetamine Screen Not Detected; U Barbituate Screen Not Detected; U Benzodiazapine Screen DETECTED; U Buprenorphine Screen Not Detected; U Cannabinoids Screen Not Detected; U Cocaine Screen Not Detected; U Methadone Screen Not Detected; U Methamphetamine Screen Not Detected; U Opiates Screen Not Detected; U Oxycodone Screen DETECTED; U Phencyclidine Screen Not Detected
[2024-11-01 15:54] VITALS: BP 148/77
--- NOTE | 2024-11-01 18:38 | NUR ---
SHIFT SUMMARY PT A&OX4 W/ INTERMIT CONFUSION AND HALLUCINATIONS. PT TITRATED DOWN TO 1L O2 NC, ATTEMPT ON RA UNSUCCESSFUL, DESAT TO 86%. PROVIDER ORDERED D DIMER AND PE STUDY. D DIMER ELEVATED AND PE STUDY NEGATIVE. ARIAS CHANGED PER ORDER. PAIN MANAGED PER EMAR. PLAN FOR R FIF SURGERY MON. NO OTHER ACUTE CHANGES. CALL LIGHT WITHIN REACH AND BED ALARM ON FOR SAFETY.
[2024-11-01 19:51] VITALS: BP 120/53
[2024-11-02 03:21] VITALS: BP 137/76
--- NOTE | 2024-11-02 04:19 | NUR ---
SHIFT SUMMARY - NO ACUTE CHANGES THROUGHOUT THE NIGHT. PT REPORTS HISTORY OF N/T TO BLE FROM THIGHS DOWNWARD, AND TO BILATERAL UPPER EXTREMITIES. RESPIRATIONS HAVE BEEN EVEN AND UNLABORED THROUGHOUT THE NIGHT - PT CONTINUES ON 1L O2 VIA NC. PT MEDICATED X1 TONIGHT FOR RLE PAIN. HELD BOWEL CARE - PT REPORTS SHE HAS BEEN HAVING LOOSE STOOLS. R LEG WRAPPED AND ELEVATED ON A PILLOW - PT ABLE TO WIGGLE HER RIGHT TOES. CALL LIGHT WITHIN REACH. BED IN LOW POSITION.
[2024-11-02 05:44] LABS: Hematocrit 33.4 % (33.0-51.0); Hemoglobin 10.7 g/dL (11.5-16.0); Mean Corpuscular Volume 87 fL (80-100); Mean Platelet Volume 10.4 fL (9.1-12.4); Platelet Count 318 K/mm3 (150-400); RDW Coefficient Variation 16.4 % (11.7-14.2); RDW Standard Deviation 50.8 fL (35.1-46.3); Red Blood Cell Count 3.82 M/mm3 (3.80-5.20); White Blood Cell Count 9.98 K/mm3 (4.00-11.30)
[2024-11-02 06:16] LABS: Bun/Creatinine Ratio 18.1 (12.0-20.0); Creatinine, Blood 0.55 mg/dL (0.40-1.00); Potassium, Blood 3.5 mmol/L (3.5-5.5)
[2024-11-02 07:35] VITALS: BP 148/72
[2024-11-02 15:46] VITALS: BP 132/85
--- NOTE | 2024-11-02 18:47 | NUR ---
DAY SHIFT SUMMARY: NO ACUTE CHANGES TO REPORT THIS SHIFT. PT A&O X3; CALM AND COOPERATIVE WITH CARE. MEDICATED FOR R FIB FX PAIN PER EMAR. ARIAS IN PLACE; DRAINING CLEAR YELLOW URINE TO GRAVITY. PHYSICAL THERAPY FOLLOWING. SURGERY PLANNED FOR 11/03; PT TO BE NPO AFTER MIDNIGHT. WCTM.
[2024-11-02 19:21] VITALS: BP 116/65
[2024-11-03] VITALS (11 sets, daily range): BP systolic 113–144; BP diastolic 58–87
[2024-11-03 06:05] LABS: Hematocrit 35.1 % (33.0-51.0)
--- NOTE | 2024-11-03 06:23 | NUR ---
PT A&OX4, ON BEDREST. PT HAS ARIAS INTACT AND DRAINING CHAMP COLORED URINE WITH SEDIMENT NOTED IN THE TUBING. PT WAS NPO AFTER MIDNIGHT. IV PATENT AND INTACT FLUSHED WITHOUT DIFFICULTY. DRESSINGS HAVE REMAINED C/D/I.
[2024-11-03 06:37] LABS: Bun/Creatinine Ratio 23.2 (12.0-20.0); Calcium, Blood 9.3 mg/dL (8.5-10.1); Creatinine, Blood 0.6 mg/dL (0.40-1.00); Magnesium, Blood 1.6 mg/dL (1.6-2.4); Phosphorus, Blood 3.3 mg/dL (2.5-4.9); Potassium, Blood 3.5 mmol/L (3.5-5.5)
[2024-11-03] MEDS ORDERED: Mag Sulfate 1 GM/D5% 100ML 100 ML IV STA (07:43)
[2024-11-03] MEDS ORDERED: Potassium Chloride 20 MEQ TabCR PO ONE (08:00)
[2024-11-03] MEDS ORDERED: propofoL 50 ML IV ONE (10:47)
[2024-11-03] MEDS ORDERED: Ropivacaine 0.5% HCL/PF 5 MG/ML 30ML Vial ONE (10:47)
[2024-11-03] MEDS ORDERED: Acetaminophen 500 MG Tab PO PRN (11:30)
[2024-11-03] MEDS ORDERED: Metoclopramide HCl 5MG / ML 2ML Vial IV PRN (11:30)
[2024-11-03] MEDS ORDERED: Lidocaine HCl 1% 5 ML SYR INJ ONE (11:30)
[2024-11-03] MEDS ORDERED: HYDROmorphone HCl/Pf 1MG SYR IV PRN ×2 (11:30)
[2024-11-03] MEDS ORDERED: Atropine Sulfate 0.1 MG/ML 10ML SYR IV PRN (11:35)
[2024-11-03] MEDS ORDERED: Scopolamine Hydrobromide Patch TOP PRN (11:35)
[2024-11-03] MEDS ORDERED: FentaNYL Citrate 50 MCG/ML 2 ML Injection IV PRN ×2 (11:35)
[2024-11-03] MEDS ORDERED: ePHEDrine Sulfate 50 MG/ML 1ML Injection IV PRN (11:35)
[2024-11-03] MEDS ORDERED: Ondansetron HCl 2 MG / ML 2ML Vial IV PRN (11:35)
[2024-11-03] MEDS ORDERED: CeFAZolin Sodium 3,000 MG in NS 100 ML IV SCH (15:55)
[2024-11-03] MEDS ORDERED: Lactated Ringer's 1,000 ML IV SCH (15:55)
[2024-11-03] MEDS ORDERED: Dexamethasone Sod Phos 10 MG/ML 1ML VIAL ONE (16:01)
[2024-11-03] MEDS ORDERED: EpiNEPhrine 1 MG/1 ML 1ML Vial ONE (16:01)
[2024-11-03] MEDS ORDERED: Dexmedetomidine HCL 200 MCG / 2 ML ONE (16:02)
--- NOTE | 2024-11-03 16:02 | NUR ---
SHIFT SUMMARY PT AOX4, COOPERATIVE, ABLE TO MAKE NEEDS KNOWN. PT HAS BEEN IN BED FOR DURATION OF SHIFT. HAS NOT ASKED TO USE BED PAIN FOR ELIMINATION, ARIAS CATHETER INTACT AND DRAINING TO GRAVITY, LITTLE URINE OUTPUT NOTED. WENT DOWN FOR PROCEDURE 10 MINUTES AGO. DO NOT KNOWN IF PT WILL BE TRANSFERRED TO SURGICAL FLOOR AFTER PROCEDURE OR REMAIN ON MEDICAL FLOOR. LEFT HAND IV WORKING SO FAR, HAD TO REDRESS AFTER SOME LEAKING. BED IN LOWEST POSITION, CALL LIGHT WITHIN REACH.
--- NOTE | 2024-11-03 16:16 | NUR ---
1547: PT BROUGHT FROM MEDICAL FLOOR TO DAY SURGERY FOR PROCEDURE W/DR VIDAL. History, Chart, Medications and Allergies reviewed before start of procedure. Lungs clear T/O to Auscultation. Patient confirms NPO status and agrees with scheduled surgery. Pre-Op teaching done. Pt verbalizes understanding. PT BELONGINGS LEFT IN PERSONAL ROOM ON MEDICAL FLOOR. PT LUCILLEPERRISHAYY LEFT WITH HER MOTHER HELENA FOR SAFEKEEPING.
[2024-11-03] MEDS ORDERED: FentaNYL Citrate 50 MCG/ML 2 ML Injection ONE (16:24)
[2024-11-03] MEDS ORDERED: Midazolam HCl 1MG / ML 2ML Vial ONE (16:24)
--- NOTE | 2024-11-03 16:38 | NUR ---
1625: DR EUGENE WITH ANESTHESIA AT BEDSIDE TO PERFORM POPLITEAL AND SAPHENOUS NERVE BLOCKS IN PREOP. PRE MEDS GIVEN BY ANESTHESIA, SEE ANESTHESIA NOTES. 1639: POPLITEAL BLOCK START TIME. 1645: POPLITEAL BLOCK END TIME. 1648: SAPHENOUS BLOCK START TIME. 1652: SAPHENOUS BLOCK END TIME. FAILED ATTEMPT PER DR EUGENE. PT ON CONTINUOUS HR/PULSE OX MONITORING THROUGHOUT PROCEDURE. VSS THROUGHOUT AND PT TOLERATED PROCEDURE WELL.
[2024-11-03] MEDS ORDERED: Sugammadex Sodium 200 MG/2ML SDV (100 MG/ML) ONE (18:03)
[2024-11-03] MEDS ORDERED: Ondansetron HCl 2 MG / ML 2ML Vial ONE (18:04)
--- NOTE | 2024-11-03 18:36 | NUR ---
RECEIVED REPORT FROM WILLI OF DAY SURG.
[2024-11-04] MEDS ORDERED: CeFAZolin Sodium 2,000 MG in NS 100 ML IV SCH (01:00)
--- NOTE | 2024-11-04 05:10 | NUR ---
PT REFUSED STOOL SOFTNERS. DISCUSSED THE IMPORTANCE OF TAKING STOOL SOFTNERS WHILE TAKING PAIN MEDICATION TO PREVENT CONSTIPATION. PT VERBALIZED UNDERSTADNING AND REFUSED STOOL SOFTNERS. AT THE BEGINING OF THE SHIFT TTEMPTED TO WEAN PT OFF OF O2 AND O2 SATS DECREASED TO 82% SHE IS AT 96% ON 2L VIA NC. CONTINUOUS BIOX MONITOR IN PLACE. AT BEGINING OF SHIFT PT REPORTED PAIN IN RLE POSTERIOR OF 9/10 PAIN MEDICATIONS GIVEN RX AND PT REPORTED PAIN WAS RELIEVED TO 0/10. PT COMPLETED SLEEP STUDY T/O THIS SHIFT.
[2024-11-04 06:09] VITALS: BP 144/84
[2024-11-04 07:06] LABS: BASOPHILS ABSOLUTE AUTO 0.03 K/mm3 (0.00-0.23); BASOPHILS PERCENT AUTO 0 % (0-2); EOSINOPHILS PERCENT AUTO 0 % (0-6); Hematocrit 34.5 % (33.0-51.0); IMMATURE GRAN ABSOLUTE AUTO 0.06 K/mm3 (0.00-0.10); IMMATURE GRAN PERCENT AUTO 1 % (0-1); LYMPHOCYTES ABSOLUTE AUTO 0.68 K/mm3 (0.84-5.20); LYMPHOCYTES PERCENT AUTO 7 % (21-46); MONOCYTES ABSOLUTE AUTO 0.24 K/mm3 (0.16-1.47); MONOCYTES PERCENT AUTO 2 % (4-13); Mean Corpuscular HGB 27.9 pg (26.0-34.0); Mean Corpuscular HGB Conc 31.9 g/dL (31.5-36.5); Mean Corpuscular Volume 88 fL (80-100); Mean Platelet Volume 10.7 fL (9.1-12.4); NEUTROPHILS ABSOLUTE AUTO 9.01 K/mm3 (1.96-9.15); NEUTROPHILS PERCENT AUTO 90 % (41-73); Platelet Count 333 K/mm3 (150-400); RDW Coefficient Variation 16.9 % (11.7-14.2); RDW Standard Deviation 53.1 fL (35.1-46.3); Red Blood Cell Count 3.94 M/mm3 (3.80-5.20); White Blood Cell Count 10.02 K/mm3 (4.00-11.30)
[2024-11-04 07:27] LABS: Albumin, Blood 2.8 g/dL (3.4-5.0); Albumin/Globulin Ratio 0.7 (0.8-1.8); Bilirubin, Total 0.3 mg/dL (0.1-1.0); Bun/Creatinine Ratio 30.6 (12.0-20.0); Calcium, Blood 9.2 mg/dL (8.5-10.1); Creatinine, Blood 0.56 mg/dL (0.40-1.00); Globulin, Blood 4.3 g/dL (2.2-4.0); Magnesium, Blood 1.9 mg/dL (1.6-2.4); Phosphorus, Blood 2.9 mg/dL (2.5-4.9); Potassium, Blood 4.1 mmol/L (3.5-5.5); Total Protein, Blood 7.1 g/dL (6.4-8.2)
[2024-11-04 07:36] VITALS: BP 130/65
[2024-11-04] MEDS ORDERED: Furosemide 10 MG / ML 2ML Vial IV ONE (08:00)
--- NOTE | 2024-11-04 17:46 | NUR ---
SHIFT SUMMARY PT AOX4, COOPERATIVE, ABLE TO MAKE NEEDS KNOWN. PT HAS NOT BEEN OUT OF BED FOR DURATION OF SHIFT. ON ROOM AIR MOST OF TIME, O2 DOES DESAT INTO HIGH 80'S DURING SLEEP. WORKED WITH THERAPY TODAY, TOLERATING PO AND IV MEDICATIONS. BED IN LOWEST POSITION, CALL LIGHT WITHIN REACH.
[2024-11-04 19:15] VITALS: BP 126/69
--- NOTE | 2024-11-05 02:57 | NUR ---
SHIFT SUMMARY NO ACUTE EVENTS DURING THIS SHIFT. MEDICATED PER EMAR FOR 9/10 RIGHT LEF/FOOT PAIN. SLEEP STUDY SET UP PER RT. ARIAS DRAINING FOR GRAVITY, YELLOW COLOR URINE. PT IS A/O X4, ABLE TO MAKE HER NEEDS KNOWN AND COOPERATIVE WITH CARE. BED AT THE LOWEST POSITION, CALL LIGHT W/I REACH.
[2024-11-05 03:38] VITALS: BP 127/64
[2024-11-05 06:08] LABS: Hematocrit 32.7 % (33.0-51.0); Hemoglobin 10.6 g/dL (11.5-16.0); Mean Corpuscular HGB 28.2 pg (26.0-34.0); Mean Corpuscular HGB Conc 32.4 g/dL (31.5-36.5); Mean Corpuscular Volume 87 fL (80-100); Mean Platelet Volume 11.2 fL (9.1-12.4); Platelet Count 335 K/mm3 (150-400); RDW Coefficient Variation 17.5 % (11.7-14.2); RDW Standard Deviation 53.8 fL (35.1-46.3); Red Blood Cell Count 3.76 M/mm3 (3.80-5.20); White Blood Cell Count 9.07 K/mm3 (4.00-11.30)
[2024-11-05 06:28] LABS: Bun/Creatinine Ratio 35.3 (12.0-20.0); Calcium, Blood 9.3 mg/dL (8.5-10.1); Creatinine, Blood 0.57 mg/dL (0.40-1.00); Magnesium, Blood 1.5 mg/dL (1.6-2.4); Potassium, Blood 3.3 mmol/L (3.5-5.5)
[2024-11-05 07:23] VITALS: BP 142/69
[2024-11-05] MEDS ORDERED: Mag Sulfate 1 GM/D5% 100ML 100 ML IV STA (07:54)
[2024-11-05] MEDS ORDERED: Potassium Chloride 20 MEQ TabCR PO ONE (08:00)
[2024-11-05] MEDS ORDERED: Furosemide 10 MG / ML 2ML Vial IV ONE (09:00)
[2024-11-05 17:05] VITALS: BP 136/70
--- NOTE | 2024-11-05 18:11 | NUR ---
SHIFT SUMMARY PATIENT A/OX4, ABLE TO MAKE NEEDS KNOWN. PLEASANT AND COOPERATIVE WITH CARE. WALLYN STATES SHE IS "STRUGGLING WITH THINGS AT HOME" RELATED TO RECENT DECLINE IN HEALTH AND NEEDING TO GO TO SKILLED FACILITY AT DISCHARGE. IV POTASSIUM REPLACED PER SEP THIS SHIFT. PATIENT DENYING PAIN ALL SHIFT, NO PRN PAIN MEDICATION ADMINISTERED. PATIENT HAS BEEN WEANED FROM 4 LPM SUPPLEMENTAL OXYGEN TO 2 LPM, TOLERATING WELL. SPO2 REMAINS ABOVE 90%, CONTINUOUS PULSE OX IN PLACE. NO OTHER CONCERNS AT THIS TIME.
[2024-11-05 20:05] VITALS: BP 131/66
--- NOTE | 2024-11-06 05:37 | NUR ---
SHIFT SUMMARY PT A&Ox4 AND ABLE TO MAKE NEEDS KNOWN. PT DENIED PAIN. PT ON 2L AT START OF SHIFT BUT OXYGEN WAS INCREASED TO 5L DURING THE NIGHT D/T SATS DROPPING INTO THE LOW 80's WHILE SLEEPING. ARIAS IN PLACE AND DRAINING YELLOW URINE. VSS. NO ACUTE CHANGES. BED IN LOWEST POSITIOIN AND CALL LIGHT IN REACH.
[2024-11-06 05:56] VITALS: BP 146/83
[2024-11-06 06:16] LABS: Hematocrit 35.1 % (33.0-51.0); Hemoglobin 11.1 g/dL (11.5-16.0)
[2024-11-06 06:38] LABS: Bun/Creatinine Ratio 31.5 (12.0-20.0); Calcium, Blood 9.8 mg/dL (8.5-10.1); Creatinine, Blood 0.6 mg/dL (0.40-1.00); Magnesium, Blood 1.9 mg/dL (1.6-2.4); Phosphorus, Blood 2.9 mg/dL (2.5-4.9); Potassium, Blood 3.5 mmol/L (3.5-5.5)
[2024-11-06 07:37] VITALS: BP 167/85
[2024-11-06] MEDS ORDERED: ACET325 PO (10:33)
[2024-11-06] MEDS ORDERED: ENOX40I SC (10:33)
[2024-11-06] MEDS ORDERED: LIDO700A20 TOP (10:37)
[2024-11-06] MEDS ORDERED: MULVITA PO (10:38)
[2024-11-06] MEDS ORDERED: MIRALAX17 GM PO (10:39)
[2024-11-06] MEDS ORDERED: NICO21TP TOP (10:39)
[2024-11-06] MEDS ORDERED: Percocet 5-3251 EACH PO (10:39)
[2024-11-06] MEDS ORDERED: B-1100 M1 PO (10:40)
[2024-11-06] MEDS ORDERED: VISBIOME 112.51 EACH PO (10:40)
[2024-11-06] MEDS ORDERED: SENN187 PO (10:40)
[2024-11-06] MEDS ORDERED: REMEDY SPECIAL113 GM TOP (10:41)
--- NOTE | 2024-11-06 11:10 | NUR ---
DISCHARGE NOTE PATIENT A/OX4, ABLE TO MAKE NEEDS KNOWN. COOPERATIVE WITH CARE. IV REMOVED, AND PULSE OX REMOVED PRIOR TO DISCHARGE. PATIENT ASSISTED TO WHEELCHAIR VIA ADELAIDA LIFT. PATIENT SENT TO FACILITY WITH ALL BELONGINGS, REPORT GIVEN TO VIET AT [facility]. NO OTHER CONCERNS AT THIS TIME.
== END 2024-11-06 11:12 | DRG 981 ==
LOC: ER 21:20 → PCU 10-29 01:21 → ERHOLD 10-29 01:21 → MEDS 10-29 01:21 → PCU 10-29 02:59 → MEDS 10-31 16:31
PROVIDERS: Hospitalist; Internal Medicine; Student in an Organized Health Care Education/Training Program; ADMIT Student in an Organized Health Care Education/Training Program
PROC: 0T2BX0Z Change Drainage Device in Bladder, External Approach (ICD-10-PCS; principal; 2024-10-29)
PROC: 3E03329 Introduction of Other Anti-infective into Peripheral Vein, Percutaneous Approach (ICD-10-PCS; 2024-10-29)
PROC: 0SSF04Z Reposition Right Ankle Joint with Internal Fixation Device, Open Approach (ICD-10-PCS; 2024-11-03)
DX: T83.511A Infection and inflammatory reaction due to indwelling urethral catheter, initial encounter (principal); A41.9 Sepsis, unspecified organism; J96.01 Acute respiratory failure with hypoxia; G92.8 Other toxic encephalopathy; Z68.43 Body mass index [BMI] 50.0-59.9, adult; R44.3 Hallucinations, unspecified; S82.831A Other fracture of upper and lower end of right fibula, initial encounter for closed fracture; G89.29 Other chronic pain; I10 Essential (primary) hypertension; E03.9 Hypothyroidism, unspecified; G47.33 Obstructive sleep apnea (adult) (pediatric); R33.8 Other retention of urine; F32.A Depression, unspecified; D64.9 Anemia, unspecified; R29.6 Repeated falls; Z79.899 Other long term (current) drug therapy; Z79.890 Hormone replacement therapy; Z79.51 Long term (current) use of inhaled steroids; Z79.82 Long term (current) use of aspirin; Z90.49 Acquired absence of other specified parts of digestive tract; Z98.1 Arthrodesis status; Z87.891 Personal history of nicotine dependence; Z99.89 Dependence on other enabling machines and devices; W18.11XA Fall from or off toilet without subsequent striking against object, initial encounter; Y92.091 Bathroom in other non-institutional residence as the place of occurrence of the external cause; E66.01 Morbid (severe) obesity due to excess calories; D25.9 Leiomyoma of uterus, unspecified
CPT/HCPCS: 0241U; 36415; 71045; 71260; 72194; 73590; 73610; 80048; 80053; 81001; 83605; 83735; 83880; 84100; 84145; 84439; 84443; 84481; 84484; 85014; 85018; 85025; 85027; 85379; 87077; 87086; 87186; 93005; 93010; 94660; 94760; 94762; 96361; 96374; 96375; 97110; 97161; 97166; 97530; 97535; 99285-25; A9270; C1713; C1776; J0171; J0690; J0696; J1100; J1650; J1940; J2250; J2270; J2405; J2704; J2795; J3010; J3475; J7030; J7050; J7120; Q9967

== ENCOUNTER 2024-11-29 11:42 | Emergency (ER) | payer BC ==
[~2024-11-29] VITALS: Ht 170.2 cm; Wt 131.5 kg
[~2024-11-29 11:42] MED LIST changes: +ACET325 PO; +B-1100 M1 PO; +ENOX40I SC; +LIDO700A20 TOP; +MIRALAX17 GM PO; +MULVITA PO; +NICO21TP TOP; +Percocet 5-3251 EACH PO; +REMEDY SPECIAL113 GM TOP; +Robaxin750 MG PO; +SENN187 PO; +VISBIOME 112.51 EACH PO
[2024-11-29] MEDS ORDERED: Belladonna Alkaloids/Opium 60 MG Sup PR ONE (12:10)
[2024-11-29] MEDS ORDERED: OXYB5 PO (14:02)
[2024-11-29] MEDS ORDERED: OxyCODONE 5 mg/Acetamin 325 mg TABLET PO ONE (14:05)
[2024-11-29] MEDS ORDERED: oxyBUTYnin chloride 5 MG TAB PO ONE (14:05)
[2024-11-29 14:30] VITALS: BP 130/78
== END 2024-11-29 15:43 | disposition home or self-care (01) ==
LOC: ER 11:42
DX: N32.89 Other specified disorders of bladder (principal); I10 Essential (primary) hypertension; E03.9 Hypothyroidism, unspecified; Z46.6 Encounter for fitting and adjustment of urinary device; Z79.899 Other long term (current) drug therapy; Z79.82 Long term (current) use of aspirin
CPT/HCPCS: 51702; 99283; A9270

== ENCOUNTER → 2025-02-07 | Outpatient (CLI) | payer BC ==
[~2025-02-07] MED LIST changes: +OXYB5 PO
[2025-02-07 14:09] LABS: Source, Urine Fem Cath
[2025-02-07 14:12] LABS: Bilirubin, Urine Neg (Neg); Color, Urine Yellow (P-Yellow); Glucose Qualitative, Urine Neg (Neg); Ketones, Urine Neg (Neg); Leukocyte Esterase, Urine Neg (Neg); Protein, Urine Neg (Neg); Specific Gravity, Urine 1.010 (1.003-1.022); Urobilinogen, Urine NORM (Normal)
[2025-02-07 14:22] LABS: Red Blood Cells, Urine 0-2 /hpf (0-2); White Blood Cells, Urine 0-2 /hpf (0-5)
== END ==
LOC: LAB SHORT 13:05 → LAB 13:05
PROVIDERS: Nurse Practitioner Family
DX: N39.0 Urinary tract infection, site not specified (principal); R30.0 Dysuria
CPT/HCPCS: 81001; 87077; 87086; 87186

== ENCOUNTER → 2025-03-11 | Outpatient (CLI) | payer BC ==
[2025-03-11 19:54] LABS: Color, Urine Yellow (P-Yellow); Glucose Qualitative, Urine Neg (Neg); Ketones, Urine 1+ (Neg); Leukocyte Esterase, Urine 2+ (Neg); Protein, Urine 3+ (Neg); Specific Gravity, Urine 1.025 (1.003-1.022); Urobilinogen, Urine 1+ (Normal)
[2025-03-11 20:15] LABS: Bilirubin, Urine 1+ (Neg)
== END ==
LOC: LAB 19:08 → LAB SHORT 19:08
PROVIDERS: Specialist
DX: R33.9 Retention of urine, unspecified (principal); Z87.440 Personal history of urinary (tract) infections; Z46.6 Encounter for fitting and adjustment of urinary device
CPT/HCPCS: 81001; 87077; 87086; 87186

== ENCOUNTER → 2025-03-24 | Outpatient (CLI) | payer BC ==
[2025-03-24 17:50] LABS: Anion Gap 7.0 mmol/L (3-11); Blood Urea Nitrogen 13.0 mg/dL (8-24); CO2, Blood 32.0 mmol/L (21-32); Calcium, Blood 10.3 mg/dL (8.5-10.1); Chloride, Blood 100.0 mmol/L (98-108); Creatinine, Blood 0.36 mg/dL (0.40-1.00); Glucose, Blood 99.0 mg/dL (70-99); LDL Direct Measurement 116.0 mg/dL (0-130); Potassium, Blood 4.1 mmol/L (3.5-5.5); Sodium, Blood 135.0 mmol/L (136-145)
== END | disposition home or self-care (01) ==
LOC: LAB 12:02 → LAB SHORT 12:02 → EDSTATUS 16:14
PROVIDERS: Nurse Practitioner Family
DX: N39.0 Urinary tract infection, site not specified (principal); E78.5 Hyperlipidemia, unspecified; E83.52 Hypercalcemia; R30.0 Dysuria; R33.9 Retention of urine, unspecified
CPT/HCPCS: 80048; 83721

== ENCOUNTER → 2025-04-09 | Outpatient (CLI) | payer BC ==
[2025-04-09 15:28] LABS: Color, Urine Brown (P-Yellow); Glucose Qualitative, Urine Neg (Neg); Ketones, Urine 1+ (Neg); Leukocyte Esterase, Urine 3+ (Neg); Protein, Urine 4+ (Neg); Specific Gravity, Urine 1.025 (1.003-1.022); Urobilinogen, Urine 2+ (Normal)
[2025-04-09 15:34] LABS: Bilirubin, Urine 1+ (Neg)
[2025-04-09 15:35] LABS: Red Blood Cells, Urine TNTC /hpf (0-2); White Blood Cells, Urine 25-50 /hpf (0-5)
== END ==
LOC: LAB 14:23 → LAB SHORT 14:23
PROVIDERS: Nurse Practitioner Family
DX: N39.0 Urinary tract infection, site not specified (principal)
CPT/HCPCS: 81001; 87077; 87086; 87186

== ENCOUNTER → 2025-04-30 | Outpatient (CLI) | payer BC ==
[2025-04-30 16:49] LABS: Source, Urine Clean Catch
[2025-04-30 17:44] LABS: Bilirubin, Urine Neg (Neg); Color, Urine Yellow (P-Yellow); Glucose Qualitative, Urine Neg (Neg); Ketones, Urine Neg (Neg); Leukocyte Esterase, Urine 3+ (Neg); Protein, Urine 3+ (Neg); Specific Gravity, Urine 1.010 (1.003-1.022); Urobilinogen, Urine NORM (Normal)
[2025-04-30 17:50] LABS: Red Blood Cells, Urine 50-100 /hpf (0-2); White Blood Cells, Urine 25-50 /hpf (0-5)
== END ==
LOC: LAB 16:47 → LAB SHORT 16:47
PROVIDERS: Nurse Practitioner Family
DX: Z87.440 Personal history of urinary (tract) infections (principal)
CPT/HCPCS: 81001; 87077; 87086; 87186

== ENCOUNTER → 2025-05-22 | Outpatient (CLI) | payer BC ==
[2025-05-22 16:17] LABS: Source, Urine Foley catheter
[2025-05-22 17:41] LABS: Bilirubin, Urine Neg (Neg); Color, Urine Yellow (P-Yellow); Glucose Qualitative, Urine Neg (Neg); Ketones, Urine Neg (Neg); Leukocyte Esterase, Urine 3+ (Neg); Protein, Urine 3+ (Neg); Specific Gravity, Urine 1.020 (1.003-1.022); Urobilinogen, Urine 1+ (Normal)
[2025-05-22 18:00] LABS: Red Blood Cells, Urine 50-100 /hpf (0-2); White Blood Cells, Urine TNTC /hpf (0-5)
== END ==
LOC: LAB SHORT 14:50 → LAB 14:50
PROVIDERS: Nurse Practitioner Family
DX: Z46.6 Encounter for fitting and adjustment of urinary device (principal); R33.9 Retention of urine, unspecified
CPT/HCPCS: 81001; 87077; 87086; 87186

== ENCOUNTER 2025-05-28 10:04 | Inpatient (IN) | payer BC ==
[~2025-05-28] VITALS: Ht 170.2 cm; Wt 130.5 kg
[2025-05-28] MEDS ORDERED: Ketorolac Tromethamine 30mg Vial IV ONE (10:40)
[2025-05-28] MEDS ORDERED: Ondansetron HCl 2 MG / ML 2ML Vial IV ONE (10:40)
[2025-05-28] MEDS ORDERED: NS 1,000 ML IV SCH ×2 (10:45→12:20)
[2025-05-28] MEDS ORDERED: Piperacillin/Tazobactam Sod 3.375 GM in NS 100 ML IV ONE (10:45)
[2025-05-28 11:38] LABS: BASOPHILS ABSOLUTE AUTO 0.08 K/mm3 (0.00-0.23); BASOPHILS PERCENT AUTO 1 % (0-2); EOSINOPHILS ABSOLUTE AUTO 0.26 K/mm3 (0.00-0.68); EOSINOPHILS PERCENT AUTO 2 % (0-6); Hematocrit 43.7 % (33.0-51.0); Hemoglobin 14.2 g/dL (11.5-16.0); IMMATURE GRAN ABSOLUTE AUTO 0.06 K/mm3 (0.00-0.10); IMMATURE GRAN PERCENT AUTO 0 % (0-1); LYMPHOCYTES ABSOLUTE AUTO 2.76 K/mm3 (0.84-5.20); LYMPHOCYTES PERCENT AUTO 19 % (21-46); MONOCYTES ABSOLUTE AUTO 0.85 K/mm3 (0.16-1.47); MONOCYTES PERCENT AUTO 6 % (4-13); Mean Corpuscular HGB Conc 32.5 g/dL (31.5-36.5); Mean Corpuscular Volume 92 fL (80-100); NEUTROPHILS ABSOLUTE AUTO 10.24 K/mm3 (1.96-9.15); NEUTROPHILS PERCENT AUTO 72 % (41-73); NRBC ABSOLUTE 0.00 K/mm3 (0.00-0.02); NRBC Auto 0.0 /100 WBC (0.0-0.2); Platelet Count 314 K/mm3 (150-400); RDW Coefficient Variation 14.4 % (11.7-14.2); RDW Standard Deviation 48.7 fL (35.1-46.3)
[2025-05-28 12:07] LABS: Alanine Aminotransfer (ALT/SGP 58.0 U/L (12-78); Albumin, Blood 3.7 g/dL (3.4-5.0); Albumin/Globulin Ratio 0.8 (0.8-1.8); Anion Gap 7.0 mmol/L (3-11); Aspartate Aminotrans (AST/SGOT 31.0 U/L (12-37); Bilirubin, Total 0.4 mg/dL (0.1-1.0); Blood Urea Nitrogen 21.0 mg/dL (8-24); CO2, Blood 32.0 mmol/L (21-32); Calcium, Blood 10.3 mg/dL (8.5-10.1); Chloride, Blood 95.0 mmol/L (98-108); Creatinine, Blood 0.62 mg/dL (0.40-1.00); Globulin, Blood 4.4 g/dL (2.2-4.0); Glucose, Blood 153.0 mg/dL (70-99); Potassium, Blood 4.4 mmol/L (3.5-5.5); Sodium, Blood 130.0 mmol/L (136-145); Total Protein, Blood 8.1 g/dL (6.4-8.2)
[2025-05-28] MEDS ORDERED: FLU VACC TS2025-26(6MOS UP)/PF 45 MCG/0.5 ML SYRINGE IM SCH (14:45)
[2025-05-28 17:07] VITALS: BP 134/72
[2025-05-28] MEDS ORDERED: BUSPIRONE HCL5 M6 PO (17:12)
[2025-05-28] MEDS ORDERED: Piperacillin/Tazobactam Sod 4.5 GM in NS 100 ML IV SCH (18:00)
[2025-05-28] MEDS ORDERED: NS 250 ML IV PRN (18:30)
--- NOTE | 2025-05-28 18:58 | NUR ---
SHIFT NOTE- A&Ox4. PLEASANT AND COOPERATIVE WITH CARE. CALLS APPROPRIATELY AND IS ABLE TO ADVOCATE NEEDS EFFECTIVELY. VSS. BREATHING EVEN AND UNLABORED c RA. ARIAS IN PLACE FOR URINARY RETENTION. PRESENT ON ADMIT. PER ER DOC HE WANTS THE ARIAS TO STAY UNTIL DISCHARGE SO PATIENT CAN GO HOME WITH A FRESH ARIAS. INCONTINENT OF BOWEL, BRIEF IN PLACE. TOLERATING DIET. DRAIN/TUBES. AMBULATES WITH ADELAIDA LIFT. PATIENT IS BEDBOUND/WHEELCHAIR AT BASELINE. MEDS WHOLE c FLUIDS. BED IN LOWEST POSITION, CALL LIGHT WITHIN REACH, ALL NEEDS MET. REPORT TO ONCOMING NURSE. NEW SHIFT EVENTS. PATIENT WAS LATE ADMIT. I WILL ASK ONCOMING NURSE TO CALL FOR MAINTENANCE MEDS, PAIN MEDS AND CONFIRM ARIAS STATUS.
[2025-05-28 19:46] VITALS: BP 113/62
[2025-05-28] MEDS ORDERED: OxyCODONE 5 mg/Acetamin 325 mg TABLET PO PRN (20:10)
[2025-05-28] MEDS ORDERED: Miconazole Nitrate 2% 85 GM PWD TOP SCH (21:00)
[2025-05-28] MEDS ORDERED: Lactobacil 2-S.Thermo-Bifido 1 1 Cap PO SCH (21:00)
[2025-05-29 04:47] VITALS: BP 106/53
[2025-05-29 04:49] LABS: BASOPHILS ABSOLUTE AUTO 0.04 K/mm3 (0.00-0.23); BASOPHILS PERCENT AUTO 0 % (0-2); EOSINOPHILS ABSOLUTE AUTO 0.28 K/mm3 (0.00-0.68); EOSINOPHILS PERCENT AUTO 3 % (0-6); Hematocrit 36.1 % (33.0-51.0); Hemoglobin 11.7 g/dL (11.5-16.0); IMMATURE GRAN ABSOLUTE AUTO 0.04 K/mm3 (0.00-0.10); IMMATURE GRAN PERCENT AUTO 0 % (0-1); LYMPHOCYTES ABSOLUTE AUTO 2.95 K/mm3 (0.84-5.20); LYMPHOCYTES PERCENT AUTO 28 % (21-46); MONOCYTES ABSOLUTE AUTO 0.70 K/mm3 (0.16-1.47); MONOCYTES PERCENT AUTO 7 % (4-13); Mean Corpuscular HGB Conc 32.4 g/dL (31.5-36.5); Mean Corpuscular Volume 94 fL (80-100); NEUTROPHILS ABSOLUTE AUTO 6.38 K/mm3 (1.96-9.15); NEUTROPHILS PERCENT AUTO 61 % (41-73); NRBC ABSOLUTE 0.00 K/mm3 (0.00-0.02); NRBC Auto 0.0 /100 WBC (0.0-0.2); Platelet Count 197 K/mm3 (150-400); RDW Coefficient Variation 14.4 % (11.7-14.2); RDW Standard Deviation 49.2 fL (35.1-46.3)
[2025-05-29 05:13] LABS: Alanine Aminotransfer (ALT/SGP 49.0 U/L (12-78); Albumin, Blood 3.1 g/dL (3.4-5.0); Albumin/Globulin Ratio 0.9 (0.8-1.8); Anion Gap 6.0 mmol/L (3-11); Aspartate Aminotrans (AST/SGOT 29.0 U/L (12-37); Bilirubin, Total 0.5 mg/dL (0.1-1.0); Blood Urea Nitrogen 23.0 mg/dL (8-24); CO2, Blood 33.0 mmol/L (21-32); Calcium, Blood 9.4 mg/dL (8.5-10.1); Chloride, Blood 96.0 mmol/L (98-108); Creatinine, Blood 0.57 mg/dL (0.40-1.00); Globulin, Blood 3.4 g/dL (2.2-4.0); Glucose, Blood 98.0 mg/dL (70-99); Potassium, Blood 4.6 mmol/L (3.5-5.5); Sodium, Blood 130.0 mmol/L (136-145); Total Protein, Blood 6.5 g/dL (6.4-8.2)
--- NOTE | 2025-05-29 06:14 | NUR ---
SHIFT SUMMARY RECYCLING OPERATOR PROVIDER NOTIFIED OF COMPLETED MED RECON, BUT HOME MEDS NOT RESTARTED EXCEPT FOR PAIN MEDICATIONS. PT MEDICATED FOR CHRONIC PAIN PER EMAR. ANTI-FUNGAL POWDER ORDERD AND USED FOR REDNESS TO CHADWICK/PERIANAL AREA. PT'S ARIAS IS DRAINING MALORDOROUS CHAMP URINE. IV ANTIBIOTICS GIVEN PER ORDER. PT SLEPT INTERMITTENTLY DURING THE NIGHT.
[2025-05-29 07:29] VITALS: BP 105/59
[2025-05-29] MEDS ORDERED: Enoxaparin 40 MG/0.4 ML SYR SC SCH (09:00)
[2025-05-29] MEDS ORDERED: Albuterol HFA200 ACT/6.7 GM INH INH PRN (10:50)
[2025-05-29] MEDS ORDERED: Levothyroxine Sodium 0.175 MG TAB PO SCH (11:00)
[2025-05-29 14:26] VITALS: BP 99/57
[2025-05-29 14:52] VITALS: BP 121/63
--- NOTE | 2025-05-29 16:55 | NUR ---
SHIFT SUMMARY- NEW SHIFT EVENTS- MAINTENANCE MEDS ORDERED AND ADMINISTERED. PALLIATIVE CARE, CASE MGMT AND PT ORDERED AND ARE WORKING WITH PT. MEDICATION STARTED FOR TREATMENT OF YEAST INFECTION. A&Ox4. PLEASANT AND COOPERATIVE WITH CARE. CALLS APPROPRIATELY AND IS ABLE TO ADVOCATE NEEDS EFFECTIVELY. VSS. BREATHING EVEN AND UNLABORED c RA. ARIAS IN PLACE FOR URINARY RETENTION. PRESENT ON ADMIT. PER ER DOC HE WANTS THE ARIAS TO STAY UNTIL DISCHARGE SO PATIENT CAN GO HOME WITH A FRESH ARIAS. INCONTINENT OF BOWEL, BRIEF IN PLACE. TOLERATING DIET. DRAIN/TUBES. AMBULATES WITH ADELAIDA LIFT. PATIENT IS BEDBOUND/WHEELCHAIR AT BASELINE. MEDS WHOLE c FLUIDS. BED IN LOWEST POSITION, CALL LIGHT WITHIN REACH, ALL NEEDS MET. REPORT TO ONCOMING NURSE.
[2025-05-29 19:22] VITALS: BP 118/57
[2025-05-29] MEDS ORDERED: TRAZ50 PO (23:36)
[2025-05-29] MEDS ORDERED: MELATONIN5 M1 PO ×2 (23:38→23:39)
[2025-05-30 05:23] LABS: BASOPHILS ABSOLUTE AUTO 0.04 K/mm3 (0.00-0.23); BASOPHILS PERCENT AUTO 1 % (0-2); EOSINOPHILS ABSOLUTE AUTO 0.29 K/mm3 (0.00-0.68); EOSINOPHILS PERCENT AUTO 4 % (0-6); Hematocrit 36.1 % (33.0-51.0); Hemoglobin 11.3 g/dL (11.5-16.0); IMMATURE GRAN ABSOLUTE AUTO 0.01 K/mm3 (0.00-0.10); IMMATURE GRAN PERCENT AUTO 0 % (0-1); LYMPHOCYTES ABSOLUTE AUTO 2.60 K/mm3 (0.84-5.20); LYMPHOCYTES PERCENT AUTO 38 % (21-46); MONOCYTES ABSOLUTE AUTO 0.48 K/mm3 (0.16-1.47); MONOCYTES PERCENT AUTO 7 % (4-13); Mean Corpuscular HGB Conc 31.3 g/dL (31.5-36.5); Mean Corpuscular Volume 94 fL (80-100); NEUTROPHILS ABSOLUTE AUTO 3.40 K/mm3 (1.96-9.15); NEUTROPHILS PERCENT AUTO 50 % (41-73); NRBC ABSOLUTE 0.00 K/mm3 (0.00-0.02); NRBC Auto 0.0 /100 WBC (0.0-0.2); Platelet Count 202 K/mm3 (150-400); RDW Coefficient Variation 14.3 % (11.7-14.2); RDW Standard Deviation 49.3 fL (35.1-46.3)
[2025-05-30 05:52] VITALS: BP 103/59
[2025-05-30 06:06] LABS: Anion Gap 9.0 mmol/L (3-11); Blood Urea Nitrogen 17.0 mg/dL (8-24); CO2, Blood 28.0 mmol/L (21-32); Calcium, Blood 9.7 mg/dL (8.5-10.1); Chloride, Blood 103.0 mmol/L (98-108); Creatinine, Blood 0.5 mg/dL (0.40-1.00); Glucose, Blood 99.0 mg/dL (70-99); Potassium, Blood 4.7 mmol/L (3.5-5.5); Sodium, Blood 135.0 mmol/L (136-145)
--- NOTE | 2025-05-30 06:53 | NUR ---
SHIFT SUMMARY PT MEDICATED FOR PAIN X1 PER EMAR. ASSISTED TO REPOSITION DURING THE NIGHT, BUT PT WANTING TO STAY MOSTLY ON BACK. ARIAS DRAINING CHAMP URINE, CLEARING TO PALE YELLOW DURING THE NIGHT. IV ANTIBIOTICS CONTINUE PER ORDER. PT SLEPT SHORT INTERVALS DURING THE NIGHT.
[2025-05-30 07:39] VITALS: BP 100/60
[2025-05-30 14:57] VITALS: BP 112/57
--- NOTE | 2025-05-30 17:35 | NUR ---
End of shift summary: Patient is alert and oriented x4; pleasant and cooperative with care but can become tearful at times r/t current situation. Patient remains bedrest d/t weakness and is a 2-prsn max with care. Patient denies SOB, CP or pressure, N/V/D today but does continue with chonic pain and is medicated per EMAR with good relief noted. No acute changes this shift. Bed in lowest position and call light within reach. Will continue to monitor until next shift nurse arrives and report is given.
[2025-05-30 19:36] VITALS: BP 114/56
[2025-05-31 05:15] VITALS: BP 98/59
[2025-05-31 05:20] LABS: BASOPHILS ABSOLUTE AUTO 0.05 K/mm3 (0.00-0.23); BASOPHILS PERCENT AUTO 1 % (0-2); EOSINOPHILS ABSOLUTE AUTO 0.27 K/mm3 (0.00-0.68); EOSINOPHILS PERCENT AUTO 4 % (0-6); Hematocrit 36.6 % (33.0-51.0); Hemoglobin 11.9 g/dL (11.5-16.0); IMMATURE GRAN ABSOLUTE AUTO 0.02 K/mm3 (0.00-0.10); IMMATURE GRAN PERCENT AUTO 0 % (0-1); LYMPHOCYTES ABSOLUTE AUTO 2.95 K/mm3 (0.84-5.20); LYMPHOCYTES PERCENT AUTO 42 % (21-46); MONOCYTES ABSOLUTE AUTO 0.59 K/mm3 (0.16-1.47); MONOCYTES PERCENT AUTO 8 % (4-13); Mean Corpuscular HGB Conc 32.5 g/dL (31.5-36.5); Mean Corpuscular Volume 94 fL (80-100); NEUTROPHILS ABSOLUTE AUTO 3.16 K/mm3 (1.96-9.15); NEUTROPHILS PERCENT AUTO 45 % (41-73); NRBC ABSOLUTE 0.00 K/mm3 (0.00-0.02); NRBC Auto 0.0 /100 WBC (0.0-0.2); Platelet Count 213 K/mm3 (150-400); RDW Coefficient Variation 14.3 % (11.7-14.2); RDW Standard Deviation 49.7 fL (35.1-46.3)
--- NOTE | 2025-05-31 05:36 | NUR ---
SHIFT SUMMARY PT CONTINUES WITH BEDREST, ASSISTED TO REPOSITION DURING THE NIGHT WITH 2 ASSIST BUT PT PREFERS TO LIE ON BACK. PT MEDICATED FOR PAIN PER EMAR. IV ANTIBIOTICS CONTINUE PER ORDER. ARIAS DRAINING YELLOW URINE. PT SLEPT INTERMITTENTLY DURING THE NIGHT.
[2025-05-31 06:30] LABS: Anion Gap 6.0 mmol/L (3-11); Blood Urea Nitrogen 16.0 mg/dL (8-24); CO2, Blood 33.0 mmol/L (21-32); Calcium, Blood 7.8 mg/dL (8.5-10.1); Chloride, Blood 102.0 mmol/L (98-108); Creatinine, Blood 0.66 mg/dL (0.40-1.00); Glucose, Blood 92.0 mg/dL (70-99); Potassium, Blood 4.3 mmol/L (3.5-5.5); Sodium, Blood 137.0 mmol/L (136-145)
[2025-05-31 08:06] VITALS: BP 126/54
[2025-05-31 15:36] VITALS: BP 117/68
--- NOTE | 2025-05-31 17:17 | NUR ---
End of shift summary: Patient is alert and oriented x4; pleasant and cooperative with care and more upbeat today with this RN. Patient denies SOB, CP or pressure, N/V/D and with continued pain that is controlled with medication. Patient with request to start on a bowel regimen that she has been completing at home and new orders obtained. No acute changes this shift and all medications administered per EMAR. Call light within reach and bed in lowest position. Will continue to monitor until next shift nurse arrives and report is given.
[2025-05-31 20:03] VITALS: BP 117/56
[2025-06-01 05:01] LABS: BASOPHILS ABSOLUTE AUTO 0.05 K/mm3 (0.00-0.23); BASOPHILS PERCENT AUTO 1 % (0-2); EOSINOPHILS ABSOLUTE AUTO 0.31 K/mm3 (0.00-0.68); EOSINOPHILS PERCENT AUTO 4 % (0-6); Hematocrit 38.1 % (33.0-51.0); Hemoglobin 12.4 g/dL (11.5-16.0); IMMATURE GRAN ABSOLUTE AUTO 0.03 K/mm3 (0.00-0.10); IMMATURE GRAN PERCENT AUTO 0 % (0-1); LYMPHOCYTES ABSOLUTE AUTO 3.06 K/mm3 (0.84-5.20); LYMPHOCYTES PERCENT AUTO 41 % (21-46); MONOCYTES ABSOLUTE AUTO 0.55 K/mm3 (0.16-1.47); MONOCYTES PERCENT AUTO 7 % (4-13); Mean Corpuscular HGB Conc 32.5 g/dL (31.5-36.5); Mean Corpuscular Volume 94 fL (80-100); NEUTROPHILS ABSOLUTE AUTO 3.49 K/mm3 (1.96-9.15); NEUTROPHILS PERCENT AUTO 47 % (41-73); NRBC ABSOLUTE 0.00 K/mm3 (0.00-0.02); NRBC Auto 0.0 /100 WBC (0.0-0.2); Platelet Count 227 K/mm3 (150-400); RDW Coefficient Variation 14.2 % (11.7-14.2); RDW Standard Deviation 48.4 fL (35.1-46.3)
[2025-06-01 05:56] VITALS: BP 126/77
--- NOTE | 2025-06-01 06:28 | NUR ---
SHIFT SUMMARY PT MEDICATED FOR PAIN WITH PERCOCET PER EMAR. IV ANTIBIOTICS GIVEN PER ORDER. PT TURNED AND REPOSITIONED, BUT SHE PREFERS TO LIE ON BACK. ARIAS DRAINING YELLOW URINE. SLEPT INTERMITTENTLY DURING THE NIGHT.
[2025-06-01 07:07] LABS: Alanine Aminotransfer (ALT/SGP 54.0 U/L (12-78); Albumin, Blood 3.0 g/dL (3.4-5.0); Albumin/Globulin Ratio 0.8 (0.8-1.8); Anion Gap 8.0 mmol/L (3-11); Aspartate Aminotrans (AST/SGOT 29.0 U/L (12-37); Bilirubin, Total 0.4 mg/dL (0.1-1.0); Blood Urea Nitrogen 12.0 mg/dL (8-24); CO2, Blood 31.0 mmol/L (21-32); Chloride, Blood 102.0 mmol/L (98-108); Creatinine, Blood 0.43 mg/dL (0.40-1.00); Globulin, Blood 3.7 g/dL (2.2-4.0); Glucose, Blood 94.0 mg/dL (70-99); Potassium, Blood 3.8 mmol/L (3.5-5.5); Sodium, Blood 137.0 mmol/L (136-145); Total Protein, Blood 6.7 g/dL (6.4-8.2)
[2025-06-01 07:08] LABS: Calcium, Blood 10.2 mg/dL (8.5-10.1)
[2025-06-01 07:31] VITALS: BP 101/56
[2025-06-01] MEDS ORDERED: Polyethylene Glycol 3350 17 gm PO SCH (09:00)
[2025-06-01 16:06] VITALS: BP 123/70
--- NOTE | 2025-06-01 16:32 | NUR ---
SHIFT SUMMARY; PT A/OX4, PLEASANT, AND CHAIRFAST USING ADELAIDA LIFT AT BASELINE. PT MEDICATED PER EMAR. DR. GONZALES AT BEDSIDE THIS AM. SEE PROGRESS NOTE. BED IN LOW POSITION AND CALL LIGHT WITHIN REACH.
[2025-06-01 19:28] VITALS: BP 126/68
[2025-06-01] MEDS ORDERED: Enoxaparin 40 MG/0.4 ML SYR SC SCH (21:00)
[2025-06-02 04:55] VITALS: BP 95/68
--- NOTE | 2025-06-02 06:06 | NUR ---
Shift Summary No acute changes. Pt medicated for lower leg pain once this shift. Offered to position legs on pillows but she declined. Reyes in place and patent. Pt is on bedrest, AOx4, makes needs known. She slept well t/o most of the night. Rcving IV ABX as ordered.
[2025-06-02 07:46] VITALS: BP 106/58
--- NOTE | 2025-06-02 14:09 | NUR ---
patient unavaliable during my rounds. discussed case with bsrn and pt she is at her baseline at this time.
--- NOTE | 2025-06-02 15:28 | NUR ---
SHIFT SUMMARY; PT A/OX4, 2 PERSON ASSIST W/ REPOSITIONING, AND COPERATIVE WITH CARE. PT MEDICATED PER EMAR. PT/OT AT BEDSIDE THIS SHIFT. SEE ASSESSMENT NOTES. PT STILL HAS S/SXS OF BLE PAIN DESCRIBED A "SUNBURN THAT IS CONSTANT." SHE ALSO HAS S/SX OF L SHOULDER PAIN THAT IS BEING MANAGED W/ MEDICATION PER EMAR AND COOL COMPRESS. DR. IBRAHIM AT BEDSIDE THIS AM. SEE PROGRESS NOTE. VSS. BED IN LOW POSITION AND CALL LIGHT WITHIN REACH.
[2025-06-02 15:58] VITALS: BP 119/65
--- NOTE | 2025-06-02 16:33 | NUR ---
THIS MEDIA SALES CONSULTANT HAS REVIEWED AND AGREES WITH ALL NOTES AND ASSESSMENTS BY USAMA GORDILLO.
[2025-06-02 20:09] VITALS: BP 110/69
[2025-06-03 05:03] VITALS: BP 111/65
--- NOTE | 2025-06-03 06:48 | NUR ---
Shift Summary Pt still reports high pain t/o shift, medicated per EMAR. I asked pt if she wanted me to ask the doctor for any other pain medication but she said she is used to that level of pain and didn't want anything else. Gave 1 muscle relaxer as ordered as well. Reyes in place, patent. Cleaned under folds and applied anti fungal powder. Pt is AOx4, awake for most of the night, appears calm and comfortable.
[2025-06-03 07:43] VITALS: BP 113/62
[2025-06-03 15:38] VITALS: BP 104/49
--- NOTE | 2025-06-03 18:16 | NUR ---
END OF SHIFT NOTE PATIENT RESTING IN BED. A&O4, ABLE TO MAKE NEEDS KNOWN. FOAM DRESSING ON COCCYX CHANGED TODAY, POWDER APPLIED. URINE CATH DRAINING YELLOW URINE TO GRAVITY. STAT LOCK IN PLACE. DISCUSSED DISCHARGE PLANS AND HER RIDE HOME. NO OTHER CONCERNS FOR THIS SHIFT.
--- NOTE | 2025-06-04 03:13 | NUR ---
NETWORK LEAD SUMMARY VSS. ADMIT DX SEVERE SEPSIS/UTI - ESBL IN THE URINE. RECEIVING IV ANTIBIOTICS. A/O X 4. ARIAS DRAINING CHAMP- CHRONIC ARIAS. TOLERATING PO MEDS WELL. COOPERATIVE WITH CARE. JOKES WITH NURSE. STAFF ASSIST WITH REPOSITIONING SHE IS WHEELCHAIR BOUND. CONTACT PRECAUTIONS CONTINUE FOR ESBL. HAS BEEN RESTING QUIETLY WITH OCCASIONAL INTERRUPTIONS. ANALGESICS AND MUSCLE RELAXANT ADMIN AT HS, MEDS EFFECTIVE. CALL LIGHT IN REACH, RAILS UP X 2 AND BED IN LOW POSITION FOR SAFETY. WILL CONT TO MONITOR.
[2025-06-04 07:24] VITALS: BP 114/66
[2025-06-04 15:43] VITALS: BP 99/58
--- NOTE | 2025-06-04 18:19 | NUR ---
PATIENT A/OX4, USES A LIFT AT BASELINE. VSS, ON RA. ARIAS TO GRAVITY WITH YELLOW/CLOUDY URINE OUTPUT. PERCOCET GIVEN X1 TODAY FOR LEG PAIN WITH STATED RELIEF. REPOSITIONING Q2 HOURS. TOLERATING REGULAR DIET. PLAN IS TO RECEIVE 5 MORE DAYS OF ABX, REFERRAL SENT TO SNF TODAY. PATIENT TEARFUL TODAY ABOUT EXTENDED STAY AND POSSIBLE TRANSFER TO SNF, BUT CALMED WITH CONVERSATION. COOPERATIVE WITH CARE AND ABLE TO MAKE NEEDS KNOWN.
[2025-06-04 19:23] VITALS: BP 106/51
[2025-06-05 04:15] VITALS: BP 119/62
[2025-06-05 05:17] LABS: Hematocrit 36.7 % (33.0-51.0); Hemoglobin 11.9 g/dL (11.5-16.0); Mean Corpuscular HGB Conc 32.4 g/dL (31.5-36.5); Mean Corpuscular Volume 93 fL (80-100); NRBC ABSOLUTE 0.00 K/mm3 (0.00-0.02); NRBC Auto 0.0 /100 WBC (0.0-0.2); Platelet Count 233 K/mm3 (150-400); RDW Coefficient Variation 14.4 % (11.7-14.2); RDW Standard Deviation 50.0 fL (35.1-46.3)
--- NOTE | 2025-06-05 05:21 | NUR ---
NO ACUTE CHANGES DURING SHIFT. PATIENT WHEELCHAIR BOUND AT HOME. PATIENT ALERT AND ORIENTED X, ABLE TO MAKE NEEDS KNOWN. RN OFFERED TO TURN PATIENT IN BED- PT DECLINES. PATIENT STATES SHE IS COMFORTABLE. RN ENCOURAGED FREQUENT REPOSITIONING IN BED AND EDUCATED PATIENT ON THE IMPORTANCE OF IT. PATIENT VERBALIZES UNDERSTANDING. CHRONIC ARIAS IN PLACE. BED IN LOW POSITION WITH WHEELS LOCKED. CALL LIGHT WITHIN REACH
[2025-06-05 05:55] LABS: Alanine Aminotransfer (ALT/SGP 55.0 U/L (12-78); Albumin, Blood 3.2 g/dL (3.4-5.0); Albumin/Globulin Ratio 0.9 (0.8-1.8); Anion Gap 7.0 mmol/L (3-11); Aspartate Aminotrans (AST/SGOT 23.0 U/L (12-37); Bilirubin, Total 0.4 mg/dL (0.1-1.0); Blood Urea Nitrogen 14.0 mg/dL (8-24); CO2, Blood 31.0 mmol/L (21-32); Calcium, Blood 9.7 mg/dL (8.5-10.1); Chloride, Blood 102.0 mmol/L (98-108); Creatinine, Blood 0.42 mg/dL (0.40-1.00); Globulin, Blood 3.6 g/dL (2.2-4.0); Glucose, Blood 101.0 mg/dL (70-99); Potassium, Blood 3.7 mmol/L (3.5-5.5); Sodium, Blood 136.0 mmol/L (136-145); Total Protein, Blood 6.8 g/dL (6.4-8.2)
[2025-06-05 08:06] VITALS: BP 130/66
[2025-06-05] MEDS ORDERED: Buspirone HCl15 MG PO (16:47)
[2025-06-05] MEDS ORDERED: MICONAZOLE NITR85 GM TOP (16:48)
[2025-06-05] MEDS ORDERED: PIPERACIL TAZO IV (16:48)
--- NOTE | 2025-06-05 17:22 | NUR ---
SHIFT/DISCHARGE SUMMARY: PATIENT MEDICATED FOR PAIN PER ROBIN elaine GOOD EFFECT. PATIENT HAS CHRONIC ARIAS AND WAS CHANGED PRIOR TO DISCHARGE, TOLERATED WELL. PATIENT HAS BEEM REFUSING REPOSITIONING T/O THE DAY. PATIENT HAS OPEN SORE TO COCCYX MIPELEX DRESSING PLACED. POWERGLIDE TO L UPPER ARM DONE BY HIEN FITZPATRICK RN. PATIENT A/OX4, PLEASANT AND COOPERATIVE c CARE. VITAL SIGS REVIEWED. PIV TO ARM DC'S. PATIENT DISCHARGE TO [facility]. PATIENT LEFT THE ROOM AT 1641 TRANSPORTED VIA W/C, DISCHARGE PACKET GIVEN TO TRANSPORT ASSOCIATE. REPORTS GIVEN TO OKSANA RENE AT [facility].
== END 2025-06-05 16:46 | DRG 698 ==
LOC: ER 10:04 → MEDS 14:42 → ENPENDDIS 06-05 14:47 → MEDS 06-05 16:46
PROVIDERS: Emergency Medicine; ADMIT Family Medicine
DX: T83.511A Infection and inflammatory reaction due to indwelling urethral catheter, initial encounter (principal); A41.52 Sepsis due to Pseudomonas; R53.2 Functional quadriplegia; R65.20 Severe sepsis without septic shock; Z68.41 Body mass index [BMI] 40.0-44.9, adult; E87.21 Acute metabolic acidosis; Z16.12 Extended spectrum beta lactamase (ESBL) resistance; E87.1 Hypo-osmolality and hyponatremia; Y84.6 Urinary catheterization as the cause of abnormal reaction of the patient, or of later complication, without mention of misadventure at the time of the procedure; N39.0 Urinary tract infection, site not specified; Z99.3 Dependence on wheelchair; I10 Essential (primary) hypertension; E03.9 Hypothyroidism, unspecified; F32.A Depression, unspecified; E66.813 Obesity, class 3; F41.1 Generalized anxiety disorder; R29.6 Repeated falls; R33.8 Other retention of urine; Z96.0 Presence of urogenital implants; B37.31 Acute candidiasis of vulva and vagina; Z23 Encounter for immunization; Z87.81 Personal history of (healed) traumatic fracture; Z90.49 Acquired absence of other specified parts of digestive tract; Z98.1 Arthrodesis status; Z98.890 Other specified postprocedural states; Z79.899 Other long term (current) drug therapy; Z79.891 Long term (current) use of opiate analgesic; Z79.82 Long term (current) use of aspirin; Z79.890 Hormone replacement therapy; Z87.891 Personal history of nicotine dependence; Z79.51 Long term (current) use of inhaled steroids
CPT/HCPCS: 36415; 51702; 80048; 80053; 82040; 82330; 83605; 85025; 85027; 87040; 94760; 96365; 96375; 97110; 97112; 97161; 97164; 97166; 97530; 99285-25; A9270; G0008; J1650; J1885; J2405; J2543; J7030; J7050; J7120